=== PATIENT | female | born 1930 | race Caucasian/White ===

== ENCOUNTER → 2016-12-20 | Outpatient (CLI) | payer OTHER ==
[~2016-12-20] MED LIST: ADVIN10/60 INH; ADVIN10050 INH; ASPI81TA28 PO; ATOR-24 PO; CHOL100010 PO; CLR10 PO; COEN1CAP17 PO; FRS/40 PO; INSDGI SC; MISCCAP80 PO; NVLGI/PEN SQ; PRIM50TA34 PO; PRLSR20 PO; TRAM-10 PO; TYLER650 PO
[2016-12-20 17:38] LABS: URINE PROTIEN/CREAT RATIO 0.1 (0-0.2); URINE TOTAL PROTEIN 18.7 mg/dl (0-11.9)
[2016-12-20 17:39] LABS: ALT/SGPT 23 U/L (12-78); BLOOD UREA NITROGEN 29 mg/dl (7-18); BUN/CREATININE RATIO 26.6 (10-20); CALCIUM 8.9 mg/dl (8.5-10.1); CARBON DIOXIDE 26 mmol/L (21-32); CHLORIDE 103 mmol/L (98-107); GLUCOSE 82 mg/dl (70-99); POTASSIUM 4.2 mmol/L (3.5-5.1); SODIUM 137 mmol/L (136-145)
[2016-12-20 17:42] LABS: ALB/GLOB RATIO 1.1 (0.9-2); ALKALINE PHOSPHATASE 88 U/L (45-117); AST/SGOT 18 U/L (15-37)
[2016-12-21 06:12] LABS: ESTIMATED AVERAGE GLUCOSE 128 mg/dl; HA1C FLAG Normal (Normal)
== END | disposition home or self-care (01) ==
LOC: C.LABBC 13:01
PROVIDERS: ATTEND Internal Medicine Geriatric Medicine
DX: R32 Unspecified urinary incontinence (principal); E11.29 Type 2 diabetes mellitus with other diabetic kidney complication

== ENCOUNTER → 2017-11-06 | Outpatient (CLI) | payer OTHER ==
[2017-11-06 13:44] LABS: BASO % 0.4 %; BASO ABS # 0.02 K/uL (0-0.2); EOS % 3.4 %; EOS ABS # 0.19 K/uL (0-0.5); HEMATOCRIT 35.9 % (37-47); IG# 0.01 K/uL (0.00-0.02); LYMPH % 32.6 %; LYMPH ABS # 1.84 K/uL (1.2-3.4); MEAN CELL VOLUME 94.7 fL (80-100); MEAN CORPUSCULAR HEMOGLOBIN 31.7 pg (25-34); MEAN CORPUSCULAR HGB CONC 33.4 g/dl (32-36); MEAN PLATELET VOLUME 10.5 fL (7.4-10.4); MONO % 9.2 %; MONO ABS # 0.52 K/uL (0.11-0.59); NEUT % 54.2 %; NEUT ABS # 3.07 K/uL (1.4-6.5); PLATELET COUNT 163 K/uL (130-400); RED CELL DISTRIBUTION WIDTH CV 12.6 % (11.5-14.5); RED CELL DISTRIBUTION WIDTH SD 42.8 fL (36.4-46.3); WHITE BLOOD COUNT 5.65 K/uL (4.8-10.8)
[2017-11-06 14:21] LABS: BLOOD UREA NITROGEN 34 mg/dl (7-18); CARBON DIOXIDE 28 mmol/L (21-32); CREATININE 1.22 mg/dl (0.60-1.20); GLUCOSE 91 mg/dl (70-99); SODIUM 141 mmol/L (136-145)
[2017-11-07 06:06] LABS: HEMOGLOBIN A1C 5.7 % (4.5-5.6)
== END | disposition home or self-care (01) ==
LOC: C.LABBC 11:51
PROVIDERS: ATTEND Internal Medicine Geriatric Medicine
DX: N18.9 Chronic kidney disease, unspecified (principal); E11.29 Type 2 diabetes mellitus with other diabetic kidney complication; I12.9 Hypertensive chronic kidney disease with stage 1 through stage 4 chronic kidney disease, or unspecified chronic kidney disease; E78.5 Hyperlipidemia, unspecified

== ENCOUNTER 2022-06-10 10:46 | Observation (INO) ==
--- NOTE | 2022-06-10 11:26 | XRay Report ---
XR chest 1V portable CLINICAL HISTORY: fall, weak. Evaluate cardiopulmonary status COMPARISON STUDY: 01/10/2022 TECHNIQUE: 1 view of the chest FINDINGS: Single frontal view of the chest demonstrates the cardiomediastinal silhouette to be within normal li mits. There is again asymmetric elevation of the right hemidiaphragm with crowding the bronchovascula r markings at the right lung base. The lungs are clear of alveolar opacities. There is no evidence fo r pleural effusion. There is no evidence for vascular congestion. There is no acute osseous pathology . IMPRESSION: 1. No acute cardiopulmonary disease. ACT 112: Negative or not required by law. Electronically signed by: Uri Jay M.D. 06/10/2022 11:25 AM
[2022-06-10 11:53] LABS: Appearance Urine Clear (Clear); Bacteria Urine Automated 1+ (Negative); Bilirubin Urine Negative (Negative); Blood Urine Trace (Negative); Cast Urine Automated 0 /lpf (0-5); Color Urine Yellow; Glucose Urine UA Negative (Negative); Ketones Urine Negative (Negative); Leukocyte Esterase Urine Trace (Negative); Nitrite Urine Negative (Negative); Protein Urine Negative (Negative); RBC Urine Automated 0-4 /hpf (0-4); Specific Gravity Urine 1.014 (1.000-1.030); Urobilinogen Urine Negative (Negative)
--- NOTE | 2022-06-10 11:55 | Emergency Department Note ---
Impression & Plan Fall, Dementia with behavioral disturbance, Back pain, Ambulatory dysfunction ED Provider Note Provider: Pedro Cedeno MD DATE OF SERVICE: 06/10/2022 CHIEF COMPLAINT: Fall HISTORY OF PRESENT ILLNESS: Patient is a 89-year-old female with a history of essential tremor, dementia, diabetic neuropathy and lymphedema, as well as CAD presenting after a fall at her home. Patient was evidently in her bathroom getting up off the toilet and lost her balance and fell to the ground. She did struck her head but denies any head or neck pain at this point. Reports some pain of the upper spine to the lower spine. Denies any new numbness or tingling in the extremities. Patient states he is some chronic swelling of her lower leg but this is not significantly changed. Does have some wound to the left soler but she states this has been improving. Patient upon arrival does have some heel cups in place but they are malpositioned may be contributing to the fall. Patient herself states the neighbors come to help but she lives by herself. She states she just felt weak and does have frequent falls. Patient states that family do not help much she does not want to see her daughter as her daughter took control of her finances. Patient states that it is currently 1921 in April. She tells me her wrong birthday. Patient denies chest pain or shortness of breath. Daughter later arrives and states that her mother has been having issues with dementia and memory for some time and got caught up in a [employer] money issue and for the last several months she has been in control of the finances. She states her mother does not like this. She states her mother lives alone and has been resistant to any move into assisted living. She states that her mother is often angry with medical providers including her PCP as they told her that she has dementia. REVIEW OF SYSTEMS: A total of 10 review of systems was obtained and negative except as stated above in the HPI. PAST MEDICAL HISTORY: As noted above MEDICATIONS: Reviewed home medication list SOCIAL HISTORY: Currently resides by herself PHYSICAL EXAM: GENERAL: alert and oriented to person but not aware of the current year or her birthday in no acute distress on stretcher Head: normocephalic and atraumatic EYES: No injection, discharge or icterus. NECK: Trachea midline. Supple. ENT: Mucous membranes pink and moist. LUNGS: Airway patent. No retractions. Breath sounds clear with good air entry bilaterally. HEART: Regular rate and rhythm. No chest wall tenderness ABDOMEN: Soft and non-tender, without guarding or rebound. No hepatosplenomegaly or masses BACK: Mild diffuse midline tenderness of the entire spine without obvious contusion or step-off noticed. SKIN: Acyanotic, warm, dry, without rashes EXTREMITIES: 2-3+ lower extremity edema of the legs with an approximately 2 x 8 cm area of some wound and contusion over the left soler. NEUROLOGICAL: No focal deficits. No aphasia. No facial droop or slurred speech. Normal strength and tone in the extremities. Sensation to gross touch normal. EK bpm. No PVC or PAC. No acute ST segment elevation with some questionable anterior T wave changes some possible ST depression in V2 V3. QTc 438. CONTINUOUS CARDIAC MONITORING: was ordered and showed a heart rate of 70s-80s bpm in normal sinus rhythm Patient's laboratory studies and imaging reviewed. Differential includes Fracture, dislocation, contusion, intra-abdominal, pneumothorax, intrathoracic, intracranial, neurologic, compartment syndrome, rhabdomyolysis, as well as other pathologies. IMPRESSION/MEDICAL DECISION MAKING: Patient presents after a fall. Does not clearly describe prodromal symptoms but not the best historian. States she did strike her head but without significant focal deficits at this time. Has chronic swelling of her lower legs does not appear to be that new in discussion with her and based on prior medical record review. Reports her left soler wound is improving and does not appear severely infected at this point. History of dementia. There was some concerns with her safety living alone given her dementia and memory status at this point. Basic labs as well as CT imaging of the head cervical spine, spine was obtained to exclude traumatic injuries given the fall. Daughter does provide some additional history and will involve case management here. Today without significant leukocytosis and urinalysis not impressive for infection. Minimal anemia. Negative COVID test. No signs of rhabdomyolysis or significant liver dysfunction. Renal function and BUN just slightly worse than previous. Given a bit of IV fluid hydration. No severe electrolyte abnormalit y. Chest x-ray per radiology without significant findings. CT head per radiology without acute findings. CT of the cervical, thoracic, and lumbar spine show osteopenia and degenerative changes with some lumbar central canal stenosis radiology. They also note multiple pulmonary lesions concerning for oncological process and as such a CT of the chest will be completed as well. In discussion with patient's daughter she states this is a known finding and she has slow-growing lung cancer that they have elected not to treat. Patient does not wish to go to assisted living but discussed with her concerns about her going home at this point given her weakness. Nursing attempted to ambulate and this did not go well and she was unable to do it even with assistance. Patient was agreeable to stay at this time given her inability to ambulate and the fact she lives alone. Patient's daughter was updated. Case management was involved and will further involve area agency on aging tomorrow. DIAGNOSIS: Fall, back pain, dementia, ambulatory dysfunction DISPOSITION: Hospitalist will evaluate Patient was agreeable with this plan. 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 Venous insufficiency Surgical History H/O hysterectomy with oophorectomy History of anesthesia reaction History of appendectomy History of colonoscopy History of evacuation of hematoma History of laparotomy (~1984) History of partial mastectomy of right breast History of tonsillectomy Hx of cataract surgery Surgical history unknown Family History Father Rheumatoid arthritis Colorectal cancer Mother Diabetes Colorectal cancer Unknown Hypertension Brain cancer Heart disease Brother H/O lower limb amputation Alcoholism Son Crohn's disease Diabetes Other Has 1 child Denies family history of Ovarian cancer Prostate cancer Breast cancer Lung cancer Social History Smoking Status: Never smoker Second Hand Exposure: No; Hx Alcohol Use: No Hx Substance Use: No Preferred Language: Upper Sorbian Communication Ability: Impaired Visual Impairment: Limited Hearing Ability: Normal Denture Model Maker Required: No marital status: / Current Living Situation: Alone current occupational status: retired How many Children do You have: 3 Feels Safe at Home: Yes Safety Concerns Comment: STATED THAT HER DAUGTHER TOOK HER PISTOL NOW SHE DOES NOT FEEL SAFE Childhood Exposure to Second-Hand Smoke: No caffeine: Yes Dental Care, Regularly: Yes Physical Activity Frequency: Does not Exercise Seatbelt Use: never Sunscreen Use: Yes Assistive Devices: Cane and Glasses Allergies Allergies Allergy/AdvReac Type Severity Reaction Status Date / Time carbidopa Allergy Unknown "GO CRAZY" Verified 04/23/22 13:08 latex Allergy Unknown ITCHY/RASH Verified 04/23/22 13:08 levodopa Allergy Unknown "GO CRAZY" Verified 04/23/22 13:08 Penicillins Allergy Unknown PT NOT SURE Verified 04/23/22 13:08 amlodipine [From Caduet] AdvReac Unknown Verified 04/23/22 13:08 atorvastatin [From Lipitor] AdvReac Unknown Verified 04/23/22 13:08 doxycycline AdvReac Unknown Verified 04/23/22 13:08 lisinopril AdvReac Unknown Verified 04/23/22 13:08 losartan AdvReac Unknown Verified 04/23/22 13:08 meclizine AdvReac Unknown Verified 04/23/22 13:08 morphine AdvReac Unknown ITCHINESS Verified 04/23/22 13:08 pramipexole [From Mirapex] AdvReac Unknown Verified 04/23/22 13:08 topiramate [From Topamax] AdvReac Unknown Verified 04/23/22 13:08 Home Meds Home Medications Medication Instructions Recorded Confirmed cholecalciferol (vitamin D3) 125 5,000 units PO QAM 06/02/20 04/23/22 mcg (5,000 unit) tablet (Vitamin D3) loratadine 10 mg tablet 10 mg PO QAM PRN Allergy Symptoms 08/04/20 04/23/22 ascorbic acid (vitamin C) 500 mg 500 mg PO DAILY 01/18/21 04/23/22 tablet cod liver oil 2 cap PO DAILY PRN 04/23/22 04/23/22 diphenhydramine 25 4 tab PO HS 04/23/22 04/23/22 mg-acetaminophen 500 mg tablet (Tylenol PM Extra Strength) primidone 50 mg tablet See Rx Instructions .Route .COMPLEX 04/23/22 turmeric 400 mg capsule 800 mg PO DAILY PRN 04/23/22 04/23/22 Previous Rx's Medication Instructions Recorded blood sugar diagnostic (OneTouch #100 ea 08/16/21 Verio test strips) blood-glucose meter (OneTouch #1 ea 08/16/21 Verio Meter) lancets 30 gauge (OneTouch Delica #200 ea 08/16/21 Lancets) fluticasone propionate 50 1 spray intranasal BID PRN nasal 09/20/21 mcg/actuation nasal congestion #16 grams spray,suspension (Flonase Allergy Relief) pen needle, diabetic 32 gauge x #100 ea 12/26/21 532" (BD Ultra-Fine Samia Pen Needle) propranolol 60 mg capsule,24 60 mg PO QAM tremors #90 caps 01/08/22 hr,extended release diphenoxylate-atropine 2.5 1 tab PO BID PRN diarrhea #30 tabs 02/20/22 mg-0.025 mg tablet (Lomotil) insulin detemir U-100 100 unit/mL 10 unit (0.1 mL) subcut HS #3 mL 04/23/22 (3 mL) subcutaneous pen (Levemir FlexTouch U-100 Insulin) furosemide 40 mg tablet 80 mg PO QAM #180 tabs 05/01/22 Results & Data (ED) Vital Signs Vital Signs - 24 hr 06/10/22 10:52 06/10/22 11:33 06/10/22 12:01 Temperature 37.0 C Temperature Source Oral Pulse Rate 78 82 Pulse Rate [Apical] Pulse Rate from SpO2 Sensor 80 Pulse Rhythm Regular Pulse Rhythm [Apical] Pulse Strength Normal Respiratory Rate 19 13 Respiratory Effort / Characteristics Non-Labored Respiratory Depth Normal Respiratory Pattern Regular Blood Pressure 119/65 117/48 L Blood Pressure [Right Arm] Blood Pressure Mean 83 71 Blood Pressure Mean [Right Arm] Blood Pressure Position Lying Blood Pressure Position [Right Arm] Pulse Oximetry 98 98 98 Oxygen Delivery Method Room Air Room Air Room Air Sepsis Recent Fever Within 48 Hours No Sepsis New/Unexplained Change in Mental Status No Sepsis Action Taken by Nursing No Action Required 06/10/22 13:06 Temperature Temperature Source Pulse Rate Pulse Rate [Apical] 71 Pulse Rate from SpO2 Sensor Pulse Rhythm Pulse Rhythm [Apical] Regular Pulse Strength Respiratory Rate 16 Respiratory Effort / Characteristics Non-Labored Spontaneous Respiratory Depth Normal Respiratory Pattern Regular Blood Pressure Blood Pressure [Right Arm] 146/60 H Blood Pressure Mean Blood Pressure Mean [Right Arm] 88 Blood Pressure Position Blood Pressure Position [Right Arm] Lying Pulse Oximetry 97 Oxygen Delivery Method Room Air Sepsis Recent Fever Within 48 Hours Sepsis New/Unexplained Change in Mental Status Sepsis Action Taken by Nursing Laboratory Data Result diagrams: 06/10/22 11:48 06/10/22 11:48 Lab Results 06/10/22 06/10/22 06/10/22 Range/Units 11:30 11:30 11:48 WBC 10.67 (4.8-10.8) K/ul RBC 3.69 L (3.93-5.22) M/uL Hgb 11.6 L (12.0-16.0) g/dl Hct 35.0 (34.1-44.9) % MCV 94.9 (80.0-100.0) fL MCH 31.4 (25.0-34.0) pg MCHC 33.1 (32.0-36.0) g/dL RDW Std Deviation 43.5 (36.4-46.3) fL RDW Coeff of Deirdre 12.5 (11.5-14.5) % Plt Count 165 (130-400) K/uL MPV 10.9 (9.4-12.3) fL Immature Gran % (Auto) 0.7 % Neut % (Auto) 84.6 % Lymph % (Auto) 7.4 % Sharp % (Auto) 7.0 % Eos % (Auto) 0.1 % Baso % (Auto) 0.2 % Neut # (Auto) 9.02 H (1.4-6.5) K/uL Lymph # (Auto) 0.79 L (1.2-3.4) K/uL Sharp # (Auto) 0.75 (0.24-0.82) K/uL Eos # (Auto) 0.01 (0-0.50) K/uL Baso # (Auto) 0.02 (0-0.2) K/uL Immature Gran # (Auto) 0.08 H (0.00-0.02) K/uL Sodium (136-145) mmol/L Potassium (3.5-5.1) mmol/L Chloride (98-107) mmol/L Carbon Dioxide (21-32) mmol/L Anion Gap (3-11) BUN (6-23) mg/dl Creatinine (0.6-1.2) mg/dl Est Cr Clr Drug Dosing ml/min Est GFR ( Amer) ml/min Est GFR (Non-Af Amer) ml/min BUN/Creatinine Ratio (10-20) Glucose (70-99(Fasting)) mg/dl Calcium (8.5-10.1) mg/dl Total Bilirubin (0.2-1.0) mg/dl AST (13-39) U/L ALT (7-52) U/L Alkaline Phosphatase (34-104) U/L Total Creatine Kinase (26-192) U/L Troponin I High Sens (0-14) pg/ml Total Protein (6.0-8.3) gm/dl Albumin (3.4-5.0) gm/dl Globulin (2.5-4.0) gm/dl Albumin/Globulin Ratio (0.9-2) TSH (0.300-4.500) uIu/ml Urine Color Yellow Urine Appearance Clear (Clear) Urine pH 5.0 (4.5-7.5) Ur Specific [place] 1.014 (1.000-1.030) Urine Protein Negative (Negative) Urine Glucose (UA) Negative (Negative) Urine Ketones Negative (Negative) Urine Blood Trace H (Negative) Urine Nitrite Negative (Negative) Urine Bilirubin Negative (Negative) Urine Urobilinogen Negative (Negative) Ur Leukocyte Esterase Trace H (Negative) Urine WBC (Auto) 1-5 (0-5) /hpf Urine RBC (Auto) 0-4 (0-4) /hpf U Hyaline Cast (Auto) 0 (0-5) /lpf U Epithel Cells (Auto) 10-20 H (0-5) /lpf Urine Bacteria (Auto) 1+ H (Negative) SARS-CoV-2, RNA, NAAT NEGATIVE (NEGATIVE) 06/10/22 06/10/22 Range/Units 11:48 11:48 WBC (4.8-10.8) K/ul RBC (3.93-5.22) M/uL Hgb (12.0-16.0) g/dl Hct (34.1-44.9) % MCV (80.0-100.0) fL MCH (25.0-34.0) pg MCHC (32.0-36.0) g/dL RDW Std Deviation (36.4-46.3) fL RDW Coeff of Deirdre (11.5-14.5) % Plt Count (130-400) K/uL MPV (9.4-12.3) fL Immature Gran % (Auto) % Neut % (Auto) % Lymph % (Auto) % Sharp % (Auto) % Eos % (Auto) % Baso % (Auto) % Neut # (Auto) (1.4-6.5) K/uL Lymph # (Auto) (1.2-3.4) K/uL Sharp # (Auto) (0.24-0.82) K/uL Eos # (Auto) (0-0.50) K/uL Baso # (Auto) (0-0.2) K/uL Immature Gran # (Auto) (0.00-0.02) K/uL Sodium 136 (136-145) mmol/L Potassium 3.9 (3.5-5.1) mmol/L Chloride 100 (98-107) mmol/L Carbon Dioxide 25 (21-32) mmol/L Anion Gap 11 (3-11) BUN 58 H (6-23) mg/dl Creatinine 1.49 H (0.6-1.2) mg/dl Est Cr Clr Drug Dosing 24.6 ml/min Est GFR ( Amer) 35.7 ml/min Est GFR (Non-Af Amer) 30.8 ml/min BUN/Creatinine Ratio 38.9 H (10-20) Glucose 178 H (70-99(Fasting)) mg/dl Calcium 9.4 (8.5-10.1) mg/dl Total Bilirubin 0.4 (0.2-1.0) mg/dl AST 27 (13-39) U/L ALT 30 (7-52) U/L Alkaline Phosphatase 120 H (34-104) U/L Total Creatine Kinase 146 (26-192) U/L Troponin I High Sens 12.4 (0-14) pg/ml Total Protein 7.8 (6.0-8.3) gm/dl Albumin 4.0 (3.4-5.0) gm/dl Globulin 3.8 (2.5-4.0) gm/dl Albumin/Globulin Ratio 1.1 (0.9-2) TSH 1.484 (0.300-4.500) uIu/ml Urine Color Urine Appearance (Clear) Urine pH (4.5-7.5) Ur Specific [place] (1.000-1.030) Urine Protein (Negative) Urine Glucose (UA) (Negative) Urine Ketones (Negative) Urine Blood (Negative) Urine Nitrite (Negative) Urine Bilirubin (Negative) Urine Urobilinogen (Negative) Ur Leukocyte Esterase (Negative) Urine WBC (Auto) (0-5) /hpf Urine RBC (Auto) (0-4) /hpf U Hyaline Cast (Auto) (0-5) /lpf U Epithel Cells (Auto) (0-5) /lpf Urine Bacteria (Auto) (Negative) SARS-CoV-2, RNA, NAAT (NEGATIVE) Administered Medications Discontinued Medications Sodium Chloride (Nss) 500 mls @ 999 mls/hr IV .Q31M ONE Stop: 06/10/22 13:13 Last Admin: 06/10/22 12:44 Dose: 999 mls/hr Documented By: PR Imaging Data Radiologist's Impression: Cervical Spine CT 06/10/22 11:05 CT cervical spine wo con CLINICAL HISTORY: fall with neck pain COMPARISON STUDY: No previous studies for comparison. CT DOSE: 2314.94 mGy.cm TECHNIQUE: Standard CT of the Cervical Spine was performed without IV contrast. A dose lowering technique was utilized adhering to the principles of ALARA. FINDINGS: Bones: The bones are osteopenic. There is reversal of expected cervical lordosis most likely related to the degenerative changes present. There is no evidence for an acute fracture or malalignment. The heights of the vertebral bodies are maintained. The vertebral bodies are in anatomic alignment. The odontoid is intact and the atlantoaxial articulation is within normal limits. Disc spaces: There is marked disc space narrowing from C4 through C7 with minimal endplate sclerosis and osteophyte formation. Apophyseal joints: Degenerative apophyseal joint disease is also seen bilaterally. Soft tissues: The prevertebral soft tissues are within normal limits. IMPRESSION: 1. Osteopenia with no acute osseous pathology. 2. 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 ACT 112: Negative or not required by law. Electronically signed by: Uri Jay M.D. 06/10/2022 1:[address] 06/10/22 11:05 CT head/brain wo con CLINICAL HISTORY: weak, fall with trauma to the head COMPARISON STUDY: 01/10/2022 CT DOSE: TECHNIQUE: Standard CT of the Brain was performed without IV contrast. A dose lowering technique was utilized adhering to the principles of ALARA. FINDINGS: Extraaxial space: There is no evidence for subdural hematoma. There are no extra-axial fluid collections. Ventricles and cisterns: The ventricles are again mildly dilated bilaterally. There is no evidence for midline shift or mass effect. Parenchyma: There is no subarachnoid or intraparenchymal hemorrhage. There is no evidence for an acute infarct or cerebral edema. There is mild cerebral cortical atrophy and decreased attenuation in the periventricular white matter representing remote small vessel disease. There are no gross mass lesions. Osseous structures: There is no evidence for an acute fracture. The visualized paranasal sinuses are clear. The mastoid air cells are clear bilaterally. Soft tissues: There is no evidence for focal soft tissue swelling. IMPRESSION: 1. No acute intracerebral pathology. 2. 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 ACT 112: Negative or not required by law. Electronically signed by: Uri Jay M.D. 06/10/2022 1:[address] 06/10/22 11:05 CT lumbar spine wo con CLINICAL HISTORY: Fall with lower back pain COMPARISON STUDY: No previous studies for comparison. CT DOSE: TECHNIQUE: Standard CT of the Lumbar Spine was performed without IV contrast. A dose lowering technique was utilized adhering to the principles of ALARA. FINDINGS: Bones: The bones are osteopenic. There is degenerative grade 1/4 spondylolisthesis of L3 on L4 and L4 on L5. There is no evidence for an acute fracture or malalignment. The heights of the vertebral bodies are maintained. The vertebral bodies are in anatomic alignment. Disc spaces: There is moderate to marked disc space narrowing present at L3-4, L4-5 and L5-S1 with vacuum disc phenomena present. Bulging annuli and thickening of the ligamentum flavum are also present at each of these levels. There is associated moderate central canal stenosis at L3-4, moderate to marked central canal stenosis at L4-5 and mild central canal stenosis at L5-S1. Facet joints: Hypertrophic facet joint disease is seen particularly at the lower 3 disc space levels. The sacroiliac joints are intact bilaterally. Soft tissues: The prevertebral soft tissues are within normal limits. IMPRESSION: 1. Osteopenia with no acute osseous pathology. 2. 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 3. There is associated central canal stenosis at the lower 3 disc space levels.. ACT 112: Negative or not required by law. Electronically signed by: Uri Jay M.D. 06/10/2022 1:[address] 06/10/22 11:05 CT thoracic spine wo con CLINICAL HISTORY: fall, pain upper back COMPARISON STUDY: No previous studies for comparison. CT DOSE: TECHNIQUE: Standard CT of the Thoracic Spine was performed without IV contrast. A dose lowering technique was utilized adhering to the principles of ALARA. FINDINGS: Bones: The bones are osteopenic. There is no evidence for an acute fracture or malalignment. The heights of the vertebral bodies are maintained. The vertebral bodies are in anatomic alignment. Disc spaces: There is moderate disc space narrowing seen throughout the thoracic spine with endplate sclerosis and osteophyte formation. Pedicles::The pedicles are intact bilaterally. Soft tissues: The paraspinal soft tissues are within normal limits. IMPRESSION: 1. Osteopenia with no acute osseous pathology. 2. Moderate disc space narrowing ACT 112: Negative or not required by law. Electronically signed by: Uri Jay M.D. 06/10/2022 1:18 PM Chest X-Ray 06/10/22 11:06 XR chest 1V portable CLINICAL HISTORY: fall, weak. Evaluate cardiopulmonary status COMPARISON STUDY: 01/10/2022 TECHNIQUE: 1 view of the chest FINDINGS: Single frontal view of the chest demonstrates the cardiomediastinal silhouette to be within normal limits. There is again asymmetric elevation of the right hemidiaphragm with crowding the bronchovascular markings at the right lung base. The lungs are clear of alveolar opacities. There is no evidence for pleural effusion. There is no evidence for vascular congestion. There is no acute osseous pathology. IMPRESSION: 1. No acute cardiopulmonary disease. ACT 112: Negative or not required by law. Electronically signed by: Uri Jay M.D. 06/10/2022 11:[address] 06/10/22 13:56 CT chest diagnostic wo con CLINICAL HISTORY: Status post fall with back pain. History of previous lung cancer with suspicion of lung lesions. COMPARISON STUDY: CT of the chest from 04/27/2019 CT DOSE: TECHNIQUE: Standard CT of the Chest was performed without IV contrast. A dose lowering technique was utilized adhering to the principles of ALARA. FINDINGS: Airway: The airway is clear. No endobronchial lesion is identified. Lungs: Compared to the previous CT, there is again a spiculated masslike consolidation with solid and groundglass attenuation in the right suprahilar upper lobe measuring approximately 3.3 x 2.3 cm when compared to 2.8 x 2.3 cm on the previous study. A large irregular and spiculated multilobular masslike consolidation is again seen at the right lung base measuring approximately 8.1 x 5.8 cm when compared to 6.4 x 5.2 cm in the previous study. Additionally, a new pulmonary nodule is seen at the left lung base measuring 1.6 cm in greatest diameter. This is characteristic of new metastatic lung disease. No other pulmonary nodules are identified. Pleura: There is no evidence for pleural effusion. There is no evidence for pneumothorax. Mediastinum: There is no evidence for pathologic adenopathy on these limited noncontrast images. The heart size is enlarged. Coronary artery calcification is present. The thoracic aorta is within normal limits. There is no evidence for pericardial effusion. Upper abdomen: The adrenal glands are normal bilaterally. There is a small to moderate size hiatal hernia. Osseous structures: There is no acute osseous pathology. IMPRESSION: 1. Interval increase in previously identified right lower lobe lung mass. 2. No significant change in right upper lobe lung mass. 3. New left lower lobe pulmonary nodule characteristic of metastatic disease. 4. No other evidence for acute chest disease. ACT 112: Negative or not required by law. Electronically signed by: Uri Jay M.D. 06/10/2022 2:36 PM Discharge Plan Visit Data Chief Complaint: Fall ED Provider: Pedro Cedeno Discharge Problem: Fall, Dementia with behavioral disturbance, Back pain, Ambulatory dysfunction Patient Disposition: Being Evaluated by Hospitalist Forms Stand Alone Forms: [facility] [place] Prescriptions Prescriptions: No Action (DME) pen needle, diabetic [BD Ultra-Fine Samia Pen Needle] 32 gauge x 5/32" needle See Rx Instructions .ROUTE .MEDSUPPLY Qty: 100 1RF Rx Instructions: use once a day furosemide 40 mg tablet 80 mg PO QAM Qty: 180 1RF (DME) OneTouch Verio test strips Strip See Rx Instructions .Route Qty: 100 3RF Rx Instructions: As directed (DME) blood-glucose meter [OneTouch Verio Meter] Misc See Rx Instructions .Route Qty: 1 0RF Rx Instructions: As directed (DME) lancets [OneTouch Delica Lancets] 30 gauge misc See Rx Instructions .Route Qty: 200 3RF Rx Instructions: As directed propranolol 60 mg capsule,extended release 24 hr 60 mg PO QAM Qty: 90 1RF primidone 50 mg tablet See Rx Instructions .ROUTE .COMPLEX Rx Instructions: TAKE 2 TABLETS (100 MG) EVERY MORNING AND 3 TABLETS (150 MG) AT BEDTIME per pt takes 4 at bedtime as of 04/23/2022 Levemir FlexTouch U-100 Insuln 100 unit/mL (3 mL) insulin pen 10 unit SQ HS Qty: 3 0RF fluticasone propionate [Flonase Allergy Relief] 50 mcg/actuation spray,suspension 1 spray intranasal BID PRN (Reason: nasal congestion) Qty: 16 2RF Rx Instructions: administer into each nostril diphenoxylate-atropine [Lomotil] 2.5-0.025 mg tablet 1 tab PO BID PRN (Reason: diarrhea) Qty: 30 0RF Rx Instructions: please mail to pt cod liver oil Capsule 2 cap PO DAILY PRN turmeric 400 mg capsule 800 mg PO DAILY PRN ascorbic acid (vitamin C) 500 mg tablet 500 mg PO DAILY cholecalciferol (vitamin D3) [Vitamin D3] 125 mcg (5,000 unit) tablet 5,000 units PO QAM loratadine 10 mg tablet 10 mg PO QAM PRN (Reason: Allergy Symptoms) diphenhydramine-acetaminophen [Tylenol PM Extra Strength] 25-500 mg tablet 4 tab PO HS Referrals Referrals: Will Qureshi DO [Primary Care Provider] - : Fall Qualifiers: Encounter type: initial encounter Qualified Code(s): W19.XXXA - Unspecified fall, initial encounter Dementia with behavioral disturbance Qualifiers: Dementia type: unspecified type Qualified Code(s): F03.91 - Unspecified dementia with behavioral disturbance Back pain Qualifiers: Back pain location: back pain in unspecified location Chronicity: acute Back pain laterality: midline Qualified Code(s): M54.9 - Dorsalgia, unspecified
[2022-06-10 12:16] LABS: Basophils # (auto) 0.02 K/uL (0-0.2); Basophils % (auto) 0.2 %; Eosinophils # (auto) 0.01 K/uL (0-0.50); Eosinophils % (auto) 0.1 %; Hemoglobin 11.6 g/dl (12.0-16.0); Immature Granulocytes # (auto) 0.08 K/uL (0.00-0.02); Immature Granulocytes % (auto) 0.7 %; Lymphocytes # (auto) 0.79 K/uL (1.2-3.4); Lymphocytes % (auto) 7.4 %; Mean Corpuscular Hemoglobin 31.4 pg (25.0-34.0); Mean Corpuscular Hgb Conc 33.1 g/dL (32.0-36.0); Mean Corpuscular Volume 94.9 fL (80.0-100.0); Mean Platelet Volume 10.9 fL (9.4-12.3); Monocytes # (auto) 0.75 K/uL (0.24-0.82); Neutrophils # (auto) 9.02 K/uL (1.4-6.5); Neutrophils % (auto) 84.6 %; Platelet Count 165 K/uL (130-400); RDW Coefficient of Variation 12.5 % (11.5-14.5); RDW Standard Deviation 43.5 fL (36.4-46.3); Red Blood Count 3.69 M/uL (3.93-5.22); White Blood Count 10.67 K/ul (4.8-10.8)
[2022-06-10 12:37] LABS: Albumin Globulin Ratio 1.1 (0.9-2); BUN Creatinine Ratio 38.9 (10-20); Bilirubin,Total 0.4 mg/dl (0.2-1.0); Calcium 9.4 mg/dl (8.5-10.1); Creatinine Clr Calc Pharmacy 24.6 ml/min; Est GFR (African American) 35.7 ml/min; Est GFR (Non-African American) 30.8 ml/min; Globulin 3.8 gm/dl (2.5-4.0); Potassium 3.9 mmol/L (3.5-5.1); Total Protein 7.8 gm/dl (6.0-8.3)
[2022-06-10 12:42] LABS: Troponin I High Sensitivity 12.4 pg/ml (0-14)
[2022-06-10] MEDS ORDERED: SODIUM CHLORIDE 0.9% 500 ML IV ONE (12:43)
--- NOTE | 2022-06-10 13:14 | CT Scan Report ---
CT head/brain wo con CLINICAL HISTORY: weak, fall with trauma to the head COMPARISON STUDY: 01/10/2022 CT DOSE: TECHNIQUE: Standard CT of the Brain was performed without IV contrast. A dose lowering technique was utilized adhering to the principles of ALARA. FINDINGS: Extraaxial space: There is no evidence for subdural hematoma. There are no extra-axial fluid collecti ons. Ventricles and cisterns: The ventricles are again mildly dilated bilaterally. There is no evidence fo r midline shift or mass effect. Parenchyma: There is no subarachnoid or intraparenchymal hemorrhage. There is no evidence for an acut e infarct or cerebral edema. There is mild cerebral cortical atrophy and decreased attenuation in the periventricular white matter representing remote small vessel disease. There are no gross mass lesio ns. Osseous structures: There is no evidence for an acute fracture. The visualized paranasal sinuses are clear. The mastoid air cells are clear bilaterally. Soft tissues: There is no evidence for focal soft tissue swelling. IMPRESSION: 1. No acute intracerebral pathology. 2. 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 ACT 112: Negative or not required by law. Electronically signed by: Uri Jay M.D. 06/10/2022 1:12 PM
--- NOTE | 2022-06-10 13:18 | CT Scan Report ---
CT cervical spine wo con CLINICAL HISTORY: fall with neck pain COMPARISON STUDY: No previous studies for comparison. CT DOSE: 2314.94 mGy.cm TECHNIQUE: Standard CT of the Cervical Spine was performed without IV contrast. A dose lowering oral hnique was utilized adhering to the principles of ALARA. FINDINGS: Bones: The bones are osteopenic. There is reversal of expected cervical lordosis most likely related to the degenerative changes present. There is no evidence for an acute fracture or malalignment. The heights of the vertebral bodies are maintained. The vertebral bodies are in anatomic alignment. The o dontoid is intact and the atlantoaxial articulation is within normal limits. Disc spaces: There is marked disc space narrowing from C4 through C7 with minimal endplate sclerosis and osteophyte formation. Apophyseal joints: Degenerative apophyseal joint disease is also seen bilaterally. Soft tissues: The prevertebral soft tissues are within normal limits. IMPRESSION: 1. Osteopenia with no acute osseous pathology. 2. 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 ACT 112: Negative or not required by law. Electronically signed by: Uri Jay M.D. 06/10/2022 1:16 PM
--- NOTE | 2022-06-10 13:19 | CT Scan Report ---
CT thoracic spine wo con CLINICAL HISTORY: fall, pain upper back COMPARISON STUDY: No previous studies for comparison. CT DOSE: TECHNIQUE: Standard CT of the Thoracic Spine was performed without IV contrast. A dose lowering tech nique was utilized adhering to the principles of ALARA. FINDINGS: Bones: The bones are osteopenic. There is no evidence for an acute fracture or malalignment. The heig hts of the vertebral bodies are maintained. The vertebral bodies are in anatomic alignment. Disc spaces: There is moderate disc space narrowing seen throughout the thoracic spine with endplate sclerosis and osteophyte formation. Pedicles::The pedicles are intact bilaterally. Soft tissues: The paraspinal soft tissues are within normal limits. IMPRESSION: 1. Osteopenia with no acute osseous pathology. 2. Moderate disc space narrowing ACT 112: Negative or not required by law. Electronically signed by: Uri Jay M.D. 06/10/2022 1:18 PM
--- NOTE | 2022-06-10 13:25 | CT Scan Report ---
CT lumbar spine wo con CLINICAL HISTORY: Fall with lower back pain COMPARISON STUDY: No previous studies for comparison. CT DOSE: TECHNIQUE: Standard CT of the Lumbar Spine was performed without IV contrast. A dose lowering techni que was utilized adhering to the principles of ALARA. FINDINGS: Bones: The bones are osteopenic. There is degenerative grade 1/4 spondylolisthesis of L3 on L4 and L4 on L5. There is no evidence for an acute fracture or malalignment. The heights of the vertebral bodi es are maintained. The vertebral bodies are in anatomic alignment. Disc spaces: There is moderate to marked disc space narrowing present at L3-4, L4-5 and L5-S1 with va cuum disc phenomena present. Bulging annuli and thickening of the ligamentum flavum are also present at each of these levels. There is associated moderate central canal stenosis at L3-4, moderate to mar ked central canal stenosis at L4-5 and mild central canal stenosis at L5-S1. Facet joints: Hypertrophic facet joint disease is seen particularly at the lower 3 disc space levels. The sacroiliac joints are intact bilaterally. Soft tissues: The prevertebral soft tissues are within normal limits. IMPRESSION: 1. Osteopenia with no acute osseous pathology. 2. 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 3. There is associated central canal stenosis at the lower 3 disc space levels.. ACT 112: Negative or not required by law. Electronically signed by: Uri Jay M.D. 06/10/2022 1:22 PM
--- NOTE | 2022-06-10 13:48 | Electrocardiogram Report ---
Test Reason : Blood Pressure : / mmHG Vent. Rate : 080 BPM Atrial Rate : 080 BPM P-R Int : 158 ms QRS Dur : 076 ms QT Int : 380 ms P-R-T Axes : 057 035 047 degrees QTc Int : 438 ms Poor data quality, interpretation may be adversely affected Normal sinus rhythm Low voltage QRS Cannot rule out Inferior infarct (cited on or before 10-JAN-2022) Abnormal ECG When compared with ECG of 10-JAN-2022 19:46, ST now depressed in Anterior leads Nonspecific T wave abnormality now evident in Anterior leads Confirmed by Vikas Rojas ([id number]) on 06/10/2022 1:48:25 PM Referred By: Confirmed By:Vikas Rojas
--- NOTE | 2022-06-10 14:38 | CT Scan Report ---
CT chest diagnostic wo con CLINICAL HISTORY: Status post fall with back pain. History of previous lung cancer with suspicion of lung lesions. COMPARISON STUDY: CT of the chest from 04/27/2019 CT DOSE: TECHNIQUE: Standard CT of the Chest was performed without IV contrast. A dose lowering technique was utilized adhering to the principles of ALARA. FINDINGS: Airway: The airway is clear. No endobronchial lesion is identified. Lungs: Compared to the previous CT, there is again a spiculated masslike consolidation with solid and groundglass attenuation in the right suprahilar upper lobe measuring approximately 3.3 x 2.3 cm when compared to 2.8 x 2.3 cm on the previous study. A large irregular and spiculated multilobular masslike consolidation is again seen at the right lung base measuring approximately 8.1 x 5.8 cm when compared to 6.4 x 5.2 cm in the previous study. Additionally, a new pulmonary nodule is seen at the left lung base measuring 1.6 cm in greatest diame ter. This is characteristic of new metastatic lung disease. No other pulmonary nodules are identified . Pleura: There is no evidence for pleural effusion. There is no evidence for pneumothorax. Mediastinum: There is no evidence for pathologic adenopathy on these limited noncontrast images. The heart size is enlarged. Coronary artery calcification is present. The thoracic aorta is within normal limits. There is no evidence for pericardial effusion. Upper abdomen: The adrenal glands are normal bilaterally. There is a small to moderate size hiatal he rnia. Osseous structures: There is no acute osseous pathology. IMPRESSION: 1. Interval increase in previously identified right lower lobe lung mass. 2. No significant change in right upper lobe lung mass. 3. New left lower lobe pulmonary nodule characteristic of metastatic disease. 4. No other evidence for acute chest disease. ACT 112: Negative or not required by law. Electronically signed by: Uri Jay M.D. 06/10/2022 2:36 PM
--- NOTE | 2022-06-10 16:02 | History & Physical Report ---
Date of Service June 10, 2022 Assessment & Plan (1) Fall: Plan: patient had a fall at her home this am. details are sparse, and I was unable to reach any family to gain more information. she had extensive imaging in the ER and fortunately no bony injury or other pat hology found. she did have considerable left hip/pelvic pain during my exam - I obtained STAT x-rays of the pelvis/left hip - negative for fractures. if pain persists consider pelvic CT. place on telemetry - r/o dysrhythmia as cause of fall (I cannot rule out syncope as cause of fall). serial troponins - r/o ACS as cause of fall. will need PT/OT to assess her safety/ambulation. (2) Left hip pain: Plan: STAT x-rays without hip fracture or obvious pelvic fracture. if pain persists - pelvic CT. tylenol prn pain. (3) Acute kidney injury: Plan: creatinine is above baseline (Cr tonight 1.49, baseline about 1). patient appears mildly volume contracted. isotonic fluids overnight, repeat BMP am. (4) UTI (urinary tract infection): Plan: u/a possibly suggestive of UTI. start rocephin 2gm daily. follow culture. (5) Acute metabolic encephalopathy: Plan: patient was very confused during my visit. the ER attending was able to obtain much more information during his assessment. thus, she is even more confused than when she first arrived. will need to get a sense of her baseline from family. treat possible UTI. consider MRI brain if altered MS persists. avoid sedatives. (6) Venous ulcer of left leg: Plan: x 2. wound care consult. in meantime - [employer]el [employer] with optifoam. she has lymphedema at baseline - would benefit from compression. (7) Abnormal EKG: Plan: she has anterior ST changes and, per the record, a prior h/o CAD. initial troponin is negative. will obtain serial troponins tonight and go from there. EKG in am. low threshold for echo. 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: Plan: RUL, RLL new nodule left base on CT chest as well previously seen by thoracic surgery - patient opted for no treatment CT head without obvious mets but if altered MS persists consider MRI brain (12) Hypertension: Plan: patient is on inderal at home - likely more so for her severe tremors continue inderal at home dosing (13) Hyperlipidemia: Plan: is not on medications for such at this time despite previous CAD history (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, controlled: Plan: HbA1C 6.2% in November 2021 repeat a1c in am cont levemir loose novolog SSI achs BSGs DM diet (15) Hypomagnesemia: Plan: history of such mag level 2.2 today (16) Essential tremor: Plan: severe previously followed [place] [facility] [place] neurology felt she did NOT have PD based on records cont primidone cont inderal (17) CAD (coronary artery disease): Plan: h/o acute UT per records she is not on aspirin or statin based on her home med list is on a beta hailey but likely being used for her essential tremor initial HS troponin negative will recheck another troponin and place on telemetry (18) DVT prophylaxis: Plan: place on heparin 5000 TID History of Present Illness Chief Complaint: fall Primary Care Provider: Will Qureshi, 89yo female with a history of dementia, essential tremor, CAD, lymphedema of b/l legs, and T2DM who presented to [facility] after having had a fall at her home. The patient was very confused during the visit, stating it was 1981 and telling me that she lives with her (she lives alone by report). Due to her confusion I was unable to obtain any meaningful history or ROS. Further, I was unable to contact the patient's daughter for additional information via phone. Thus, all information was obtained from reading the patient's chart and speaking with the ER attending. By report the patient was at home in her bathroom and attempting to get up from the toilet. She lost her balance and fell to the ground. ?struck her head. It is unknown if she had any loss of consciousness. Additionally, the ER attending spoke with the patient's daughter earlier today and did confirm her mother has dementia. Due to the dementia and other factors the patient's daughter has taken control of the patient's finances. Her daughter has encouraged her to move to an assisted living facility but the patient has resisted such. Allergies Allergy/AdvReac Type Severity Reaction Status Date / Time carbidopa Allergy Unknown "GO CRAZY" Verified 04/23/22 13:08 latex Allergy Unknown ITCHY/RASH Verified 04/23/22 13:08 levodopa Allergy Unknown "GO CRAZY" Verified 04/23/22 13:08 Penicillins Allergy Unknown PT NOT SURE Verified 04/23/22 13:08 amlodipine [From Caduet] AdvReac Unknown Verified 04/23/22 13:08 atorvastatin [From Lipitor] AdvReac Unknown Verified 04/23/22 13:08 doxycycline AdvReac Unknown Verified 04/23/22 13:08 lisinopril AdvReac Unknown Verified 04/23/22 13:08 losartan AdvReac Unknown Verified 04/23/22 13:08 meclizine AdvReac Unknown Verified 04/23/22 13:08 morphine AdvReac Unknown ITCHINESS Verified 04/23/22 13:08 pramipexole [From Mirapex] AdvReac Unknown Verified 04/23/22 13:08 topiramate [From Topamax] AdvReac Unknown Verified 04/23/22 13:08 Home Medications Medication Instructions Recorded Confirmed Type cholecalciferol (vitamin D3) 125 5,000 units PO QAM 06/02/20 04/23/22 History mcg (5,000 unit) tablet (Vitamin D3) loratadine 10 mg tablet 10 mg PO QAM PRN Allergy Symptoms 08/04/20 04/23/22 History ascorbic acid (vitamin C) 500 mg 500 mg PO DAILY 01/18/21 04/23/22 History tablet blood sugar diagnostic ([email or web address] #100 ea 08/16/21 04/23/22 Rx Verio test strips) blood-glucose meter ([email or web address] #1 ea 08/16/21 04/23/22 Rx Verio Meter) lancets 30 gauge (OneTouch Delica #200 ea 08/16/21 04/23/22 Rx Lancets) fluticasone propionate 50 1 spray intranasal BID PRN nasal 09/20/21 04/23/22 Rx mcg/actuation nasal congestion #16 grams spray,suspension (Flonase Allergy Relief) pen needle, diabetic 32 gauge x #100 ea 12/26/21 04/23/22 Rx 5/32" (BD Ultra-Fine Samia Pen Needle) propranolol 60 mg capsule,24 60 mg PO QAM tremors #90 caps 01/08/22 04/23/22 Rx hr,extended release diphenoxylate-atropine 2.5 1 tab PO BID PRN diarrhea #30 tabs 02/20/22 04/23/22 Rx mg-0.025 mg tablet (Lomotil) cod liver oil 2 cap PO DAILY PRN 04/23/22 04/23/22 History diphenhydramine 25 4 tab PO HS 04/23/22 04/23/22 History mg-acetaminophen 500 mg tablet (Tylenol PM Extra Strength) insulin detemir U-100 100 unit/mL 10 unit (0.1 mL) subcut HS #3 mL 04/23/22 04/23/22 Rx (3 mL) subcutaneous pen (Levemir FlexTouch U-100 Insulin) primidone 50 mg tablet See Rx Instructions .Route .COMPLEX 04/23/22 History turmeric 400 mg capsule 800 mg PO DAILY PRN 04/23/22 04/23/22 History furosemide 40 mg tablet 80 mg PO QAM #180 tabs 05/01/22 Rx Past Med/Surg History Medical History (Updated 06/11/22 @ 06:44 by Freedrick Holt) Asthma CKD (chronic kidney disease) Dementia Diabetes mellitus with renal manifestations, controlled Diabetic peripheral neuropathy Essential tremor followed [place] [facility] [place] Gait disturbance GERD (gastroesophageal reflux disease) Hearing loss Hiatal hernia History of breast cancer RIGHT BREAST (>20 YEARS AGO) History of myocardial infarction History of skin cancer Hyperlipidemia Hypertension Lymphedema MEGAN (obstructive sleep apnea) NO CPAP Osteoarthritis Osteoporosis 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 Ongoing Observation with Ct, no tx desired by Pt. Right knee DJD Venous insufficiency Surgical History H/O hysterectomy with oophorectomy History of anesthesia reaction PT REPORTS SLOW TO WAKE UP - Takes a few hours History of appendectomy History of colonoscopy History of evacuation of hematoma LEG History of laparotomy (~1984) DUE TO ABDOMINAL ADHESIONS History of partial mastectomy of right breast History of tonsillectomy Hx of cataract surgery Surgical history unknown PT REPORTS CAN'T REMEMBER ALL OF HER SURGERIES Family History Father Rheumatoid arthritis Colorectal cancer Mother Diabetes Colorectal cancer Unknown Hypertension Brain cancer Heart disease Brother H/O lower limb amputation Alcoholism Son Crohn's disease Diabetes Other Has 1 child Denies family history of Ovarian cancer Prostate cancer Breast cancer Lung cancer Social History Smoking Status: Never smoker Second Hand Exposure: No; Hx Alcohol Use: No Hx Substance Use: No Preferred Language: German Communication Ability: Impaired Visual Impairment: Limited Hearing Ability: Normal Buttonhole Facer Required: No marital status: / Current Living Situation: Alone current occupational status: retired How many Children do You have: 3 Feels Safe at Home: Yes Childhood Exposure to Second-Hand Smoke: No caffeine: Yes Dental Care, Regularly: Yes Physical Activity Frequency: Does not Exercise Seatbelt Use: never Sunscreen Use: Yes Assistive Devices: Cane and Glasses Review of Systems Review of Systems: Unobtainable due to cognitive status Physical Exam Physical Exam: gen - very confused, unable to give any meaningful history; tremors noted eyes - PERRL HENT - TMs clear b/l, mouth with mildly dry MM neck - no JVD, no masses, no signs of trauma face - no signs of trauma heart - RRR, s1 s2 lungs - CTA b/l abd - soft NT BS+; mildly distended; no HSM ext - lymphedema of legs extending to the thighs, pulses 2+ b/l skin - ulcers x 2 on left anterior soler; no drainage; no signs of cellulitis musculo - passive ROM of right hip without pain; VERY tender with passive ROM of left hip; pushing on the pelvis, however, did not cause pain psych - oriented to person only neuro - severe tremors of arms b/l; no facial droop; strength b/l upper extremities 5/5; strength ankle dorsiflexion/plantarflexion 5/5 Results & Data Results & Data ([facility]) Vital Signs (Past 12 Hours) Vital Signs Temp Pulse Pulse Resp BP BP Pulse Ox 06/10/22 13:06 71 16 146/60 H 97 06/10/22 12:01 82 13 117/48 L 98 06/10/22 11:33 98 06/10/22 10:52 37.0 C 78 19 119/65 98 O2 Del Method 06/10/22 13:06 Room Air 06/10/22 12:01 Room Air 06/10/22 11:33 Room Air 06/10/22 10:52 Room Air Laboratory Results Laboratory Results - last 24 hr 06/10/22 06/10/22 06/10/22 11:30 11:30 11:48 WBC 10.67 RBC 3.69 L Hgb 11.6 L Hct 35.0 MCV 94.9 MCH 31.4 MCHC 33.1 RDW Std Deviation 43.5 RDW Coeff of Deirdre 12.5 Plt Count 165 MPV 10.9 Immature Gran % (Auto) 0.7 Neut % (Auto) 84.6 Lymph % (Auto) 7.4 Arthur % (Auto) 7.0 Eos % (Auto) 0.1 Baso % (Auto) 0.2 Neut # (Auto) 9.02 H Lymph # (Auto) 0.79 L Arthur # (Auto) 0.75 Eos # (Auto) 0.01 Baso # (Auto) 0.02 Immature Gran # (Auto) 0.08 H Sodium Potassium Chloride Carbon Dioxide Anion Gap BUN Creatinine Est Cr Clr Drug Dosing Est GFR ( Amer) Est GFR (Non-Af Amer) BUN/Creatinine Ratio Glucose POC Glucose Calcium Magnesium Total Bilirubin AST ALT Alkaline Phosphatase Total Creatine Kinase Troponin I High Sens Total Protein Albumin Globulin Albumin/Globulin Ratio TSH Urine Color Yellow Urine Appearance Clear Urine pH 5.0 Ur Specific Beulah 1.014 Urine Protein Negative Urine Glucose (UA) Negative Urine Ketones Negative Urine Blood Trace H Urine Nitrite Negative Urine Bilirubin Negative Urine Urobilinogen Negative Ur Leukocyte Esterase Trace H Urine WBC (Auto) 1-5 Urine RBC (Auto) 0-4 U Hyaline Cast (Auto) 0 U Epithel Cells (Auto) 10-20 H Urine Bacteria (Auto) 1+ H SARS-CoV-2, RNA, NAAT NEGATIVE 06/10/22 06/10/22 06/10/22 11:48 11:48 11:48 WBC RBC Hgb Hct MCV MCH MCHC RDW Std Deviation RDW Coeff of Deirdre Plt Count MPV Immature Gran % (Auto) Neut % (Auto) Lymph % (Auto) Arthur % (Auto) Eos % (Auto) Baso % (Auto) Neut # (Auto) Lymph # (Auto) Arthur # (Auto) Eos # (Auto) Baso # (Auto) Immature Gran # (Auto) Sodium 136 Potassium 3.9 Chloride 100 Carbon Dioxide 25 Anion Gap 11 BUN 58 H Creatinine 1.49 H Est Cr Clr Drug Dosing 24.6 Est GFR ( Amer) 35.7 Est GFR (Non-Af Amer) 30.8 BUN/Creatinine Ratio 38.9 H Glucose 178 H POC Glucose Calcium 9.4 Magnesium 2.2 Total Bilirubin 0.4 AST 27 ALT 30 Alkaline Phosphatase 120 H Total Creatine Kinase 146 Troponin I High Sens 12.4 Total Protein 7.8 Albumin 4.0 Globulin 3.8 Albumin/Globulin Ratio 1.1 TSH 1.484 Urine Color Urine Appearance Urine pH Ur Specific Beulah Urine Protein Urine Glucose (UA) Urine Ketones Urine Blood Urine Nitrite Urine Bilirubin Urine Urobilinogen Ur Leukocyte Esterase Urine WBC (Auto) Urine RBC (Auto) U Hyaline Cast (Auto) U Epithel Cells (Auto) Urine Bacteria (Auto) SARS-CoV-2, RNA, NAAT 06/10/22 21:22 WBC RBC Hgb Hct MCV MCH MCHC RDW Std Deviation RDW Coeff of Deirdre Plt Count MPV Immature Gran % (Auto) Neut % (Auto) Lymph % (Auto) Arthur % (Auto) Eos % (Auto) Baso % (Auto) Neut # (Auto) Lymph # (Auto) Arthur # (Auto) Eos # (Auto) Baso # (Auto) Immature Gran # (Auto) Sodium Potassium Chloride Carbon Dioxide Anion Gap BUN Creatinine Est Cr Clr Drug Dosing Est GFR ( Amer) Est GFR (Non-Af Amer) BUN/Creatinine Ratio Glucose POC Glucose 149 H Calcium Magnesium Total Bilirubin AST ALT Alkaline Phosphatase Total Creatine Kinase Troponin I High Sens Total Protein Albumin Globulin Albumin/Globulin Ratio TSH Urine Color Urine Appearance Urine pH Ur Specific Beulah Urine Protein Urine Glucose (UA) Urine Ketones Urine Blood Urine Nitrite Urine Bilirubin Urine Urobilinogen Ur Leukocyte Esterase Urine WBC (Auto) Urine RBC (Auto) U Hyaline Cast (Auto) U Epithel Cells (Auto) Urine Bacteria (Auto) SARS-CoV-2, RNA, NAAT Diagnostic Findings Cervical Spine CT 06/10/22 11:05 CT cervical spine wo con CLINICAL HISTORY: fall with neck pain COMPARISON STUDY: No previous studies for comparison. CT DOSE: 2314.94 mGy.cm TECHNIQUE: Standard CT of the Cervical Spine was performed without IV contrast. A dose lowering technique was utilized adhering to the principles of ALARA. FINDINGS: Bones: The bones are osteopenic. There is reversal of expected cervical lordosis most likely related to the degenerative changes present. There is no evidence for an acute fracture or malalignment. The heights of the vertebral bodies are maintained. The vertebral bodies are in anatomic alignment. The odontoid is intact and the atlantoaxial articulation is within normal limits. Disc spaces: There is marked disc space narrowing from C4 through C7 with minimal endplate sclerosis and osteophyte formation. Apophyseal joints: Degenerative apophyseal joint disease is also seen bilaterally. Soft tissues: The prevertebral soft tissues are within normal limits. IMPRESSION: 1. Osteopenia with no acute osseous pathology. 2. 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 ACT 112: Negative or not required by law. Electronically signed by: Uri Jay M.D. 06/10/2022 1:[address] 06/10/22 11:05 CT head/brain wo con CLINICAL HISTORY: weak, fall with trauma to the head COMPARISON STUDY: 01/10/2022 CT DOSE: TECHNIQUE: Standard CT of the Brain was performed without IV contrast. A dose lowering technique was utilized adhering to the principles of ALARA. FINDINGS: Extraaxial space: There is no evidence for subdural hematoma. There are no extra-axial fluid collections. Ventricles and cisterns: The ventricles are again mildly dilated bilaterally. There is no evidence for midline shift or mass effect. Parenchyma: There is no subarachnoid or intraparenchymal hemorrhage. There is no evidence for an acute infarct or cerebral edema. There is mild cerebral cortical atrophy and decreased attenuation in the periventricular white matter representing remote small vessel disease. There are no gross mass lesions. Osseous structures: There is no evidence for an acute fracture. The visualized paranasal sinuses are clear. The mastoid air cells are clear bilaterally. Soft tissues: There is no evidence for focal soft tissue swelling. IMPRESSION: 1. No acute intracerebral pathology. 2. 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 ACT 112: Negative or not required by law. Electronically signed by: Uri Jay M.D. 06/10/2022 1:[address] 06/10/22 11:05 CT lumbar spine wo con CLINICAL HISTORY: Fall with lower back pain COMPARISON STUDY: No previous studies for comparison. CT DOSE: TECHNIQUE: Standard CT of the Lumbar Spine was performed without IV contrast. A dose lowering technique was utilized adhering to the principles of ALARA. FINDINGS: Bones: The bones are osteopenic. There is degenerative grade 1/4 spondylolisthesis of L3 on L4 and L4 on L5. There is no evidence for an acute fracture or malalignment. The heights of the vertebral bodies are maintained. The vertebral bodies are in anatomic alignment. Disc spaces: There is moderate to marked disc space narrowing present at L3-4, L4-5 and L5-S1 with vacuum disc phenomena present. Bulging annuli and thickening of the ligamentum flavum are also present at each of these levels. There is associated moderate central canal stenosis at L3-4, moderate to marked central canal stenosis at L4-5 and mild central canal stenosis at L5-S1. Facet joints: Hypertrophic facet joint disease is seen particularly at the lower 3 disc space levels. The sacroiliac joints are intact bilaterally. Soft tissues: The prevertebral soft tissues are within normal limits. IMPRESSION: 1. Osteopenia with no acute osseous pathology. 2. 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 3. There is associated central canal stenosis at the lower 3 disc space levels.. ACT 112: Negative or not required by law. Electronically signed by: Uri Jay M.D. 06/10/2022 1:[address] 06/10/22 11:05 CT thoracic spine wo con CLINICAL HISTORY: fall, pain upper back COMPARISON STUDY: No previous studies for comparison. CT DOSE: TECHNIQUE: Standard CT of the Thoracic Spine was performed without IV contrast. A dose lowering technique was utilized adhering to the principles of ALARA. FINDINGS: Bones: The bones are osteopenic. There is no evidence for an acute fracture or malalignment. The heights of the vertebral bodies are maintained. The vertebral bodies are in anatomic alignment. Disc spaces: There is moderate disc space narrowing seen throughout the thoracic spine with endplate sclerosis and osteophyte formation. Pedicles::The pedicles are intact bilaterally. Soft tissues: The paraspinal soft tissues are within normal limits. IMPRESSION: 1. Osteopenia with no acute osseous pathology. 2. Moderate disc space narrowing ACT 112: Negative or not required by law. Electronically signed by: Uri Jay M.D. 06/10/2022 1:18 PM Chest X-Ray 06/10/22 11:06 XR chest 1V portable CLINICAL HISTORY: fall, weak. Evaluate cardiopulmonary status COMPARISON STUDY: 01/10/2022 TECHNIQUE: 1 view of the chest FINDINGS: Single frontal view of the chest demonstrates the cardiomediastinal silhouette to be within normal limits. There is again asymmetric elevation of the right hemidiaphragm with crowding the bronchovascular markings at the right lung base. The lungs are clear of alveolar opacities. There is no evidence for pleural effusion. There is no evidence for vascular congestion. There is no acute osseous pathology. IMPRESSION: 1. No acute cardiopulmonary disease. ACT 112: Negative or not required by law. Electronically signed by: Uri Jay M.D. 06/10/2022 11:[address] 06/10/22 13:56 CT chest diagnostic wo con CLINICAL HISTORY: Status post fall with back pain. History of previous lung cancer with suspicion of lung lesions. COMPARISON STUDY: CT of the chest from 04/27/2019 CT DOSE: TECHNIQUE: Standard CT of the Chest was performed without IV contrast. A dose lowering technique was utilized adhering to the principles of ALARA. FINDINGS: Airway: The airway is clear. No endobronchial lesion is identified. Lungs: Compared to the previous CT, there is again a spiculated masslike consolidation with solid and groundglass attenuation in the right suprahilar upper lobe measuring approximately 3.3 x 2.3 cm when compared to 2.8 x 2.3 cm on the previous study. A large irregular and spiculated multilobular masslike consolidation is again seen at the right lung base measuring approximately 8.1 x 5.8 cm when compared to 6.4 x 5.2 cm in the previous study. Additionally, a new pulmonary nodule is seen at the left lung base measuring 1.6 cm in greatest diameter. This is characteristic of new metastatic lung disease. No other pulmonary nodules are identified. Pleura: There is no evidence for pleural effusion. There is no evidence for pneumothorax. Mediastinum: There is no evidence for pathologic adenopathy on these limited noncontrast images. The heart size is enlarged. Coronary artery calcification is present. The thoracic aorta is within normal limits. There is no evidence for pericardial effusion. Upper abdomen: The adrenal glands are normal bilaterally. There is a small to moderate size hiatal hernia. Osseous structures: There is no acute osseous pathology. IMPRESSION: 1. Interval increase in previously identified right lower lobe lung mass. 2. No significant change in right upper lobe lung mass. 3. New left lower lobe pulmonary nodule characteristic of metastatic disease. 4. No other evidence for acute chest disease. ACT 112: Negative or not required by law. Electronically signed by: Uri Jay M.D. 06/10/2022 2:36 PM Hip/Pelvis X-Ray 06/10/22 16:21 XR hip LT 2V w pelvis CLINICAL HISTORY: severe L hip pain, s/p fall; fracture?. COMPARISON STUDY: 01/10/2022 TECHNIQUE: AP pelvis and 2 left hip views FINDINGS: Bones: The bones are osteopenic. There is no evidence for an acute fracture or dislocation. There is no lytic or blastic lesion. Joints: There is moderate narrowing of the hip joint space superiorly. The bones are in anatomic alignment. Soft tissues: There is no focal soft tissue abnormality. There is no radiopaque foreign body. IMPRESSION: 1. No acute osseous pathology. 2. Osteopenia and osteoarthritis. ACT 112: Negative or not required by law. Electronically signed by: Uri Jay M.D. 06/10/2022 5:14 PM EKG -- my reading - NSR, nonspecific ST changes anteroseptal leads, artifact Code Status & VTE Plan Code Status unable to reach family to discuss code status; patient, due to confusion, unable to engage in discussion re: code status -- thus, full code for now VTE Prophylaxis Plan VTE Prophylaxis will be ordered: Yes PG Care Time/CCT Total # of Minutes Spent Total Time Spent with Patient: Total time spent is greater than 50% in coordination of care (as documented) at patient's floor/unit and/or counseling patient: Coding Level of Care Code INT OBSERVATION CARE 70M LVL 3 Diagnoses Fall W19.XXXA Encounter type: initial encounter Left hip pain M25.552 Acute kidney injury N17.9 UTI (urinary tract infection) N39.0 Acute metabolic encephalopathy G93.41 Venous ulcer of left leg I83.029; L97.929 Abnormal EKG R94.31 Ambulatory dysfunction R26.2 Dementia with behavioral disturbance F03.91 Dementia type: unspecified type Acquired lymphedema I89.0 Primary mucinous adenocarcinoma of lung C34.90 Hypertension I10 Hyperlipidemia E78.5 Diabetes mellitus with renal manifestations, controlled E11.29 Hypomagnesemia E83.42 Essential tremor G25.0 CAD (coronary artery disease) I25.10 DVT prophylaxis Z29.9 (1) Dementia with behavioral disturbance Dementia type: unspecified type Qualified Code(s): F03.91 - Unspecified dementia with behavioral disturbance (2) Fall Encounter type: initial encounter Qualified Code(s): W19.XXXA - Unspecified fall, initial encounter
[2022-06-10] MEDS ORDERED: cefTRIAXone SODIUM 2,000 MG/70 ML BAG IV STA (16:30)
--- NOTE | 2022-06-10 17:17 | XRay Report ---
XR hip LT 2V w pelvis CLINICAL HISTORY: severe L hip pain, s/p fall; fracture?. COMPARISON STUDY: 01/10/2022 TECHNIQUE: AP pelvis and 2 left hip views FINDINGS: Bones: The bones are osteopenic. There is no evidence for an acute fracture or dislocation. There is no lytic or blastic lesion. Joints: There is moderate narrowing of the hip joint space superiorly. The bones are in anatomic alig nment. Soft tissues: There is no focal soft tissue abnormality. There is no radiopaque foreign body. IMPRESSION: 1. No acute osseous pathology. 2. Osteopenia and osteoarthritis. ACT 112: Negative or not required by law. Electronically signed by: Uri Jay M.D. 06/10/2022 5:14 PM
[2022-06-10] MEDS ORDERED: ONDANSETRON INJ 2 MG/ML 2 ML VIAL IV PRN (20:35)
[2022-06-10] MEDS ORDERED: SODIUM CHLORIDE 0.9% 1000ML 1,000 ML IV SCH (20:35)
[2022-06-10] MEDS ORDERED: ACETAMINOPHEN 325 MG TAB PO PRN (20:35)
[2022-06-10] MEDS: PRIMIDONE 50 MG TAB PO SCH (21:55)
[2022-06-10] MEDS: INSULIN DETEMIR FLEXPEN/FLEX TOUCH 100 UNITS/ML 3ML SQ SCH (21:58)
[2022-06-10] MEDS: INSULIN ASPART PER UNIT SC SCH (23:46)
--- NOTE | 2022-06-11 00:30 | Communication Note ---
Date of Service: June 11, 2022 Notified by nursing of elevated troponin. HS-Trop from 12.4 --> 1739.2. Patient with history of CAD, not on ASA at present on home meds On exam she is resting comfortably, arousable and mildly confused but able to answer yes and no She denies chest pain, SOB EKG obtained with no acute ST changes. Will add ASA 81mg po daily to medications Trend troponin Telemetry monitoring Check 2D echo in AM
[2022-06-11] MEDS ORDERED: Nursing to Pharmacy Communication SCH (04:15)
[2022-06-11] MEDS ORDERED: HEPARIN SOD 5,000 UNIT/0.5 ML VIAL SQ SCH (06:00)
[2022-06-11 06:51] LABS: Estimated Average Glucose 120 mg/dl; Hemoglobin A1C 5.8 % (4.5-5.6)
[2022-06-11 07:00] LABS: BUN Creatinine Ratio 39.6 (10-20); Calcium 8.7 mg/dl (8.5-10.1); Creatinine Clr Calc Pharmacy 34.6 ml/min; Est GFR (African American) 53.9 ml/min; Est GFR (Non-African American) 46.5 ml/min; Potassium 3.8 mmol/L (3.5-5.1)
--- NOTE | 2022-06-11 08:51 | Ultrasound Report ---
BILATERAL LOWER EXTREMITY VENOUS DOPPLER HISTORY: Acute pain and swelling of the right lower extremity severe lymphedema; eval DVT COMPARISON STUDY: None. FINDINGS: There is normal compressibility, flow, and augmentation within the bilateral lower extremit y deep venous systems. Subcutaneous edema. IMPRESSION: No DVT within the right or left lower extremity. ACT 112: Negative or not required by law. Electronically signed by: Alirio Zuleta M.D. 06/11/2022 8:49 AM
--- NOTE | 2022-06-11 09:28 | Electrocardiogram Report ---
Test Reason : Blood Pressure : / mmHG Vent. Rate : 101 BPM Atrial Rate : 101 BPM P-R Int : 152 ms QRS Dur : 086 ms QT Int : 370 ms P-R-T Axes : 070 049 048 degrees QTc Int : 479 ms Sinus tachycardia with occasional Premature ventricular complexes Low voltage QRS Cannot rule out Inferior infarct (cited on or before 10-JAN-2022) Abnormal ECG When compared with ECG of 10-JUN-2022 11:14, Premature ventricular complexes are now Present Confirmed by Vikas Rojas ([id number]) on 06/11/2022 9:27:58 AM Referred By: REFERRED SELF Confirmed By:Vikas Rojas
[2022-06-11] MEDS: INSULIN ASPART PER UNIT SC SCH ×4 (09:52→22:35)
[2022-06-11] MEDS: HEPARIN SOD 5,000 UNIT/0.5 ML VIAL SQ SCH ×3 (10:01→21:37)
[2022-06-11] MEDS: PROPRANOLOL HCL 60 MG LA CAP PO SCH (10:02)
[2022-06-11] MEDS: ASCORBIC ACID 500 MG TAB PO SCH (10:03)
[2022-06-11] MEDS: CHOLECALCIFEROL 5,000 UNITS 125 MCG TAB PO SCH (10:03)
[2022-06-11] MEDS: ASPIRIN 81 MG ECTAB PO SCH (10:03)
--- NOTE | 2022-06-11 11:32 | XCELERA ---
[id number]
--- NOTE | 2022-06-11 12:05 | Electrocardiogram Report ---
Test Reason : Blood Pressure : / mmHG Vent. Rate : 103 BPM Atrial Rate : 103 BPM P-R Int : 146 ms QRS Dur : 086 ms QT Int : 346 ms P-R-T Axes : 043 045 060 degrees QTc Int : 453 ms Poor data quality, interpretation may be adversely affected Sinus tachycardia Cannot rule out Inferior infarct (cited on or before 10-JAN-2022) Abnormal ECG When compared with ECG of 11-JUN-2022 00:26, Premature ventricular complexes are no longer Present Confirmed by Vikas Rojas ([id number]) on 06/11/2022 12:04:41 PM Referred By: REFERRED SELF Confirmed By:Vikas Rojas
[2022-06-11] MEDS ORDERED: SODIUM CHLORIDE 0.9% 500 ML IV SCH (13:15)
[2022-06-11] MEDS ORDERED: traMADol HCL 50 MG TABLET PO PRN (13:17)
[2022-06-11] MEDS ORDERED: bisacodyL 10 MG SUPP PR PRN (13:17)
--- NOTE | 2022-06-11 13:26 | Hospitalist Progress Note ---
Date of Service June 11, 2022 Assessment & Plan (1) Fall: Plan: Baseline shuffling and poor gait due to osteoarthritis per POA; did have pain on passive movementCT pelvis (2) Left hip pain: Plan: Pain control, as above (3) Acute kidney injury: Plan: Improved, BP softcontinue volume (4) UTI (urinary tract infection): Plan: Certainly can cause toxic encephalopathy though not confirmed; continue Rocephin, cultures (5) Venous ulcer of left leg: Plan: x 2. wound care consult. in meantime - aquacel ag with optifoam. she has lymphedema at baseline - would benefit from compression. (6) Ambulatory dysfunction: Plan: PT, OT evals to assess walking after CT pelvis will determine further detail (7) Dementia with behavioral disturbance: Plan: per records she has advanced dementia; per daughter rapid decline, paranoid towards family Watch for hyperactive delirium (8) Primary mucinous adenocarcinoma of lung: Plan: Per daughter known since a couple of years or so; her cardiothoracic surgeon recommended no treatment; now it appears metastasesat present nonurgent issue; depending on goals consider outpatient oncology (9) Essential tremor: Plan: severe previously followed by [facility] [place] neurology neurology felt she did NOT have PD based on records cont primidone cont inderal (10) CAD (coronary artery disease): Plan: Aspirin added; preserved LV function on echo; lipid panel; may have NSTEMI type I versus type IIdiscussion with POAconservative management, medical treatment (11) Toxic encephalopathy: Plan: Uncertain if acute change versus progression; at present treat UTI, reversible factors, observe (12) NSTEMI (non-ST elevated myocardial infarction): Plan: Type I versus type II; POA desires conservative measures (13) Diabetes: Plan: Sugars reasonableno change but avoid hypoglycemia Plan Can follow mild anemia; DNR per discussion with POA; discussed and they agree with palliative care consultation Admission and Anticipated Discharge Date Admission Date: June 11, 2022 Subjective Follow-up of presentation with fall, altered mental statuscontinues to be altered; pain on passive lower extremity movement Physical Exam Physical Exam: Constitutional and general: Confused, looks biologic age Head and face: No puffiness, atraumatic Eyes: No scleral icterus, extraocular movements normal Neck: Supple, no JVD Musculoskeletal: No acute joint swelling, no bony abnormalities Skin/dermatologic/integument: No rash, no purpura Hematologic and lymphatic: pallor +, no petechia Gastrointestinal/abdomen: Nondistended, soft, nonacute Neurologic: Cranial nerves intact, nonfocal Cardiovascular: Heart rhythm regular, no rub, soft systolic murmur, no gallop Respiratory: Chest movements equal, no use of accessory muscles, no adventitious sounds Extremities: Venous ulcer left lower extremity Results & Data Results & Data ([facility]) Vital Signs (Past 12 Hours) Vital Signs Temp Pulse Resp BP BP Pulse Ox Pulse Ox 06/11/22 12:50 36.6 C 75 18 118/70 94 06/11/22 07:55 06/11/22 07:31 37.7 C H 102 H 16 92/56 L 96 06/11/22 07:23 06/11/22 07:23 37.2 C 104 H 16 92/56 L 96 06/11/22 07:23 96 06/11/22 05:27 96 H 16 105/65 95 O2 Del Method O2 Del Method 06/11/22 12:50 Room Air 06/11/22 07:55 Room Air 06/11/22 07:31 Room Air 06/11/22 07:23 Room Air 06/11/22 07:23 Room Air 06/11/22 07:23 Room Air 06/11/22 05:27 Room Air Laboratory Results Laboratory Results - last 24 hr 06/10/22 06/10/22 06/10/22 11:48 21:22 23:22 Sodium Potassium Chloride Carbon Dioxide Anion Gap BUN Creatinine Est Cr Clr Drug Dosing Est GFR ( Amer) Est GFR (Non-Af Amer) BUN/Creatinine Ratio Glucose POC Glucose 149 H Estimat Average Glucose Hemoglobin A1c Calcium Magnesium 2.2 Troponin I High Sens 1739.2 H* D 06/10/22 06/10/22 06/11/22 23:25 23:28 06:07 Sodium 138 Potassium 3.8 Chloride 105 Carbon Dioxide 22 Anion Gap 11 BUN 42 H Creatinine 1.06 D Est Cr Clr Drug Dosing 34.6 Est GFR ( Amer) 53.9 Est GFR (Non-Af Amer) 46.5 BUN/Creatinine Ratio 39.6 H Glucose 158 H POC Glucose 210 H 204 H Estimat Average Glucose Hemoglobin A1c Calcium 8.7 Magnesium Troponin I High Sens 2595.0 H* D 06/11/22 06/11/22 06/11/22 06:07 07:26 10:49 Sodium Potassium Chloride Carbon Dioxide Anion Gap BUN Creatinine Est Cr Clr Drug Dosing Est GFR ( Amer) Est GFR (Non-Af Amer) BUN/Creatinine Ratio Glucose POC Glucose 174 H Estimat Average Glucose 120 Hemoglobin A1c 5.8 H Calcium Magnesium Troponin I High Sens 2415.8 H* PG Care Time/CCT Total # of Minutes Spent Total Time Spent with Patient: Total time spent is greater than 50% in coordination of care (as documented) at patient's floor/unit and/or counseling patient: Coding Level of Care Code 71176 Subseq Hosp Care Lvl 2 Diagnoses Fall W19.XXXA Encounter type: initial encounter Left hip pain M25.552 Acute kidney injury N17.9 UTI (urinary tract infection) N39.0 Venous ulcer of left leg I83.029; L97.929 Ambulatory dysfunction R26.2 Dementia with behavioral disturbance F03.91 Dementia type: unspecified type Primary mucinous adenocarcinoma of lung C34.90 Essential tremor G25.0 CAD (coronary artery disease) I25.10 Toxic encephalopathy G92.9 NSTEMI (non-ST elevated myocardial infarction) I21.4 Diabetes E11.9 (1) Dementia with behavioral disturbance Dementia type: unspecified type Qualified Code(s): F03.91 - Unspecified dementia with behavioral disturbance (2) Fall Encounter type: initial encounter Qualified Code(s): W19.XXXA - Unspecified fall, initial encounter
--- NOTE | 2022-06-11 14:48 | CT Scan Report ---
PELVIS CT CT DOSE: 630.31 mGy.cm HISTORY: fall; hip and pelvic pain TECHNIQUE: Multiaxial CT images of the pelvis were performed and reformatted in the sagittal and paradise nal plane without the use of contrast. A dose lowering technique was utilized adhering to the princi ples of LALITHA. COMPARISON: Abdomen and pelvis CT 01/10/2022. Pelvis and left hip radiograph 06/10/2022. FINDINGS: Suspect a subtle nondisplaced fracture at the S4 level of the distal sacrum. There is minim al presacral edema. No additional fractures identified within the pelvis or hips. Stable sclerotic fo cus within the left posterior iliac bone measuring 1.6 cm. This favors a bone island. Colonic diverti culosis. Minimal fat stranding at the distal descending colon which may represent a resolving or deve loping acute diverticulitis. This has improved compared the prior CT examination. IMPRESSION: 1. Probable subtle nondisplaced fracture at the S4 level of the distal sacrum with minimal presacral edema. 2. No additional fractures identified within the pelvis or hips. 3. Minimal fat stranding at the distal descending colon which may represent a resolving or developing acute diverticulitis. This has slightly improved in the interval. ACT 112: Negative or not required by law. Electronically signed by: Dimitrios Pena M.D. 06/11/2022 2:46 PM
[2022-06-11] MEDS: SODIUM CHLORIDE 0.9% 1000ML 1,000 ML IV SCH (15:03)
[2022-06-11] MEDS: oxyCODONE HCL IR 5 MG TAB (IMMEDIATE RELEASE) PO PRN (15:04)
[2022-06-11] MEDS: cefTRIAXone SODIUM 2,000 MG in DEXTROSE 5% 50 ML IV SCH (18:42)
[2022-06-11] MEDS: metroNIDAZOLE 500 MG TAB PO SCH (21:35)
[2022-06-11] MEDS: PRIMIDONE 50 MG TAB PO SCH (21:35)
[2022-06-11] MEDS: INSULIN DETEMIR FLEXPEN/FLEX TOUCH 100 UNITS/ML 3ML SQ SCH (22:35)
[2022-06-12] MEDS: SODIUM CHLORIDE 0.9% 1000ML 1,000 ML IV SCH (03:44)
[2022-06-12] MEDS: ASPIRIN 81 MG ECTAB PO SCH (08:13)
[2022-06-12] MEDS: ASCORBIC ACID 500 MG TAB PO SCH (08:13)
[2022-06-12] MEDS: CHOLECALCIFEROL 5,000 UNITS 125 MCG TAB PO SCH (08:14)
[2022-06-12] MEDS: PROPRANOLOL HCL 60 MG LA CAP PO SCH (08:14)
[2022-06-12] MEDS: HEPARIN SOD 5,000 UNIT/0.5 ML VIAL SQ SCH ×3 (08:14→22:32)
[2022-06-12] MEDS: POLYETHYLENE (MIRALAX) 17 GM PACK PO SCH (08:14)
[2022-06-12] MEDS: INSULIN ASPART PER UNIT SC SCH ×4 (08:15→20:42)
[2022-06-12 08:22] LABS: Basophils # (auto) 0.02 K/uL (0-0.2); Basophils % (auto) 0.2 %; Eosinophils # (auto) 0.04 K/uL (0-0.50); Eosinophils % (auto) 0.5 %; Hematocrit (blood only) 28.1 % (34.1-44.9); Hemoglobin 9.1 g/dl (12.0-16.0); Immature Granulocytes # (auto) 0.05 K/uL (0.00-0.02); Immature Granulocytes % (auto) 0.6 %; Lymphocytes # (auto) 0.76 K/uL (1.2-3.4); Lymphocytes % (auto) 8.8 %; Mean Corpuscular Hemoglobin 30.6 pg (25.0-34.0); Mean Corpuscular Hgb Conc 32.4 g/dL (32.0-36.0); Mean Corpuscular Volume 94.6 fL (80.0-100.0); Mean Platelet Volume 10.9 fL (9.4-12.3); Monocytes # (auto) 0.81 K/uL (0.24-0.82); Monocytes % (auto) 9.4 %; Neutrophils # (auto) 6.96 K/uL (1.4-6.5); Neutrophils % (auto) 80.5 %; Platelet Count 157 K/uL (130-400); RDW Coefficient of Variation 12.4 % (11.5-14.5); RDW Standard Deviation 43.1 fL (36.4-46.3); Red Blood Count 2.97 M/uL (3.93-5.22); White Blood Count 8.64 K/ul (4.8-10.8)
[2022-06-12] MEDS: metroNIDAZOLE 500 MG TAB PO SCH ×3 (08:59→20:45)
[2022-06-12] MEDS: oxyCODONE HCL IR 5 MG TAB (IMMEDIATE RELEASE) PO PRN (09:01)
[2022-06-12 09:02] LABS: Albumin Globulin Ratio 0.9 (0.9-2); Albumin Level 2.8 gm/dl (3.4-5.0); Bilirubin,Total 0.3 mg/dl (0.2-1.0); Calcium 8.4 mg/dl (8.5-10.1); Est GFR (African American) 53.9 ml/min; Est GFR (Non-African American) 46.5 ml/min; Globulin 3.1 gm/dl (2.5-4.0); Magnesium 2.1 mg/dl (1.7-2.4); Phosphorus 3.1 mg/dl (2.5-4.9); Potassium 3.7 mmol/L (3.5-5.1); Total Protein 5.9 gm/dl (6.0-8.3)
--- NOTE | 2022-06-12 12:52 | Palliative Care Consultation ---
Date of Consultation June 12, 2022 Assessment & Plan (1) Back pain: She has apparently described more of a radicular pattern to her pain though she localized it to her low back when I asked her. She does have lumbar spinal stenosis on CT. I spoke with Melissa about approaches to pain management. Oxycodone has been effective for her but with risk of delirium, constipation and falls, maximizing adjuvant therapies would be advantageous. Will start lidoderm patch which should also help with radicular pain. Continue oxycodone prn. She is on miralax daily. Back pain laterality: midline Back pain location: back pain in unspecified location Chronicity: acute Qualified Code(s): M54.9 - Dorsalgia, unspecified (2) Palliative care encounter: Melissa is POA for her mother and tells me that when that was documented, they talked about her wishes. Molly said that she did not want any measures to prolong her life and specifically said that she would not want any procedures. She has a living will which is consistent with this. Melissa's hope is that her mother be transferred to a SNF when stable for discharge. She is not able to care for herself at home and family is not able to provide additional care. Focus of care would be comfort with no hospitalization unless her comfort could not be managed at the SNF. Will complete POLST prior to discharge to document this. (3) Dementia: (4) Primary mucinous adenocarcinoma of lung: (5) CAD (coronary artery disease): History of Present Illness Reason for Consultation: goals of care Requesting Physician: Dr. Low Attending Physician: Joe Low MD History of Present Illness 89 yo lady with history of dementia and CAD. She presented with a small sacral fracture after a fall at home and was found to have EMILY and a NSTEMI. 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 She is sleeping but easily arousable and very pleasant. She tells me that she is doing better today. She denies pain at this time, though her daughter tells me that she had been complaining of pain earlier in the day. She does have prn oxycodone and had one prn dose this morning. Her daughter tells me that Molly often has adverse reactions to medications. Molly does not recall how she got here and is not oriented to time. Her daughter, Melissa, tells me that she has been getting more confused at home and having more difficulty with ADLs. She has difficulty getting around due to back pain. Allergies Allergy/AdvReac Type Severity Reaction Status Date / Time carbidopa Allergy Unknown "GO CRAZY" Verified 04/23/22 13:08 latex Allergy Unknown ITCHY/RASH Verified 04/23/22 13:08 levodopa Allergy Unknown "GO CRAZY" Verified 04/23/22 13:08 Penicillins Allergy Unknown PT NOT SURE Verified 04/23/22 13:08 amlodipine [From Caduet] AdvReac Unknown Verified 04/23/22 13:08 atorvastatin [From Lipitor] AdvReac Unknown Verified 04/23/22 13:08 doxycycline AdvReac Unknown Verified 04/23/22 13:08 lisinopril AdvReac Unknown Verified 04/23/22 13:08 losartan AdvReac Unknown Verified 04/23/22 13:08 meclizine AdvReac Unknown Verified 04/23/22 13:08 morphine AdvReac Unknown ITCHINESS Verified 04/23/22 13:08 pramipexole [From Mirapex] AdvReac Unknown Verified 04/23/22 13:08 topiramate [From Topamax] AdvReac Unknown Verified 04/23/22 13:08 Home Medications Medication Instructions Recorded Confirmed Type cholecalciferol (vitamin D3) 125 5,000 units PO QAM 06/02/20 04/23/22 History mcg (5,000 unit) tablet (Vitamin D3) loratadine 10 mg tablet 10 mg PO QAM PRN Allergy Symptoms 08/04/20 04/23/22 History ascorbic acid (vitamin C) 500 mg 500 mg PO DAILY 01/18/21 04/23/22 History tablet blood sugar diagnostic (NextBioTouch #100 ea 08/16/21 04/23/22 Rx Verio test strips) blood-glucose meter (OneTouch #1 ea 08/16/21 04/23/22 Rx Verio Meter) lancets 30 gauge (OneTouch Delica #200 ea 08/16/21 04/23/22 Rx Lancets) fluticasone propionate 50 1 spray intranasal BID PRN nasal 09/20/21 04/23/22 Rx mcg/actuation nasal congestion #16 grams spray,suspension (Flonase Allergy Relief) pen needle, diabetic 32 gauge x #100 ea 12/26/21 04/23/22 Rx 32" (BD Ultra-Fine Samia Pen Needle) propranolol 60 mg capsule,24 60 mg PO QAM tremors #90 caps 01/08/22 04/23/22 Rx hr,extended release diphenoxylate-atropine 2.5 1 tab PO BID PRN diarrhea #30 tabs 02/20/22 04/23/22 Rx mg-0.025 mg tablet (Lomotil) cod liver oil 2 cap PO DAILY PRN 04/23/22 04/23/22 History diphenhydramine 25 4 tab PO HS 04/23/22 04/23/22 History mg-acetaminophen 500 mg tablet (Tylenol PM Extra Strength) insulin detemir U-100 100 unit/mL 10 unit (0.1 mL) subcut HS #3 mL 04/23/22 04/23/22 Rx (3 mL) subcutaneous pen (Levemir FlexTouch U-100 Insulin) primidone 50 mg tablet See Rx Instructions .Route .COMPLEX 04/23/22 History turmeric 400 mg capsule 800 mg PO DAILY PRN 04/23/22 04/23/22 History furosemide 40 mg tablet 80 mg PO QAM #180 tabs 05/01/22 Rx Patient History Medical History Asthma CKD (chronic kidney disease) Dementia Diabetes mellitus with renal manifestations, controlled Diabetic peripheral neuropathy Essential tremor followed by [facility] [place] Neurology Gait disturbance GERD (gastroesophageal reflux disease) Hearing loss Hiatal hernia History of breast cancer RIGHT BREAST (>20 YEARS AGO) History of myocardial infarction History of skin cancer Hyperlipidemia Hypertension Lymphedema MEGAN (obstructive sleep apnea) NO CPAP Osteoarthritis Osteoporosis 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 Ongoing Observation with Ct, no tx desired by Pt. Right knee DJD Venous insufficiency Surgical History H/O hysterectomy with oophorectomy History of anesthesia reaction PT REPORTS SLOW TO WAKE UP - Takes a few hours History of appendectomy History of colonoscopy History of evacuation of hematoma LEG History of laparotomy (~1984) DUE TO ABDOMINAL ADHESIONS History of partial mastectomy of right breast History of tonsillectomy Hx of cataract surgery Surgical history unknown PT REPORTS CAN'T REMEMBER ALL OF HER SURGERIES Family History Father Rheumatoid arthritis Colorectal cancer Mother Diabetes Colorectal cancer Unknown Hypertension Brain cancer Heart disease Brother H/O lower limb amputation Alcoholism Son Crohn's disease Diabetes Other Has 1 child Denies family history of Ovarian cancer Prostate cancer Breast cancer Lung cancer Social History Smoking Status: Never smoker Second Hand Exposure: No; Hx Alcohol Use: No Hx Substance Use: No Preferred Language: Tamazight Communication Ability: Effective Visual Impairment: Limited Hearing Ability: Normal Data Integration Analyst Required: No Beliefs That Will Affect Care: None marital status: Current Living Situation: Alone current occupational status: retired How many Children do You have: 3 Other Information That Helps Us Care for You: No Feels Safe at Home: Yes Childhood Exposure to Second-Hand Smoke: No caffeine: Yes Dental Care, Regularly: Yes Physical Activity Frequency: Does not Exercise Seatbelt Use: never Sunscreen Use: Yes Assistive Devices: Cane, Scooter/Electric Scooter and Other Assistive Devices Comment: transport chair Review of Systems Review of Systems: Unobtainable due to cognitive status ESAS Pain 0/3 Dyspnea 0/3 Drowsiness 0/3 PPS 40% Physical Exam Constitutional: no acute distress ENMT: Mouth: oral mucous membranes not dry Respiratory: normal respiratory effort; no labored breathing Cardiovascular: Rate/Rhythm: regular rate and regular rhythm Neurologic: awake and + confused Speech / Cognition: + abnormal cognition Results & Data ([facility]) Vital Signs (Past 12 Hours) Vital Signs Temp Pulse Pulse Resp BP Pulse Ox O2 Del Method 06/12/22 11:07 97.5 F L 78 18 97/59 L 93 Room Air 06/12/22 08:01 73 06/12/22 06:37 97.9 F 64 18 111/63 96 Room Air 06/12/22 04:00 98.2 F 79 18 102/69 93 Room Air PG Care Time/CCT Total # of Minutes Spent Total Time Spent: 56 Total Time Spent with Patient: Total time spent is greater than 50% in coordination of care (as documented) at patient's floor/unit and/or counseling patient: symptom management, goals of care, family education and support [phone] Coding Level of Care Code 12016 Initial Inpt Care Lvl 2 Diagnoses Back pain M54.9 Back pain laterality: midline Back pain location: back pain in unspecified location Chronicity: acute Palliative care encounter Z51.5 Dementia F03.90 Primary mucinous adenocarcinoma of lung C34.90 CAD (coronary artery disease) I25.10
--- NOTE | 2022-06-12 13:04 | Orthopedic Consultation ---
Date of Consultation June 12, 2022 Assessment & Plan (1) Sacral fracture: X-rays and CT scans reviewed. Degenerative changes noted. Pelvic CT reviewed with Dr. Mancia. Miniscule fracture at the area of S4. No other fractures identified. She has some obvious joint space narrowing of both hips and osteop enia is noted. Venous Doppler negative for DVT. What the patient described to me earlier was her whole leg was severely painful when she was initially coming in. This sounded more radicular in nature. Lumbar CT showing narrowing at 3 disc spaces as well as degenerative changes. Her exam was mostly benign and she was somewhat surprised how well her leg felt during moving it. I suspect that some of her pain may have been radicular in nature. With her current films from her hip being benign, and her exam essentially being fairly benign, she may have had some irritation to the nerve root at the time of admission however this has seemed to have calmed down. If she continues to have this partial or full leg length pain, consider lumbar MRI. Continue pain medication as necessary. Consider a warm K pad to the lumbar sacral area. WBAT for transfers/ambulation. 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 At the time of the admission the patient was confused and history was somewhat difficult to get from the patient. Patient does have a history of dementia. Patient has a history of multiple falls over the past. Currently she is sitting up in her bed awake and alert and does give some history of multiple falls that she has had. At this time she states that she is not here secondary to a fall however she had taken her scooter down to the mailbox to see if she had any male and somehow lost control of the scooter and questionably fell off of it or put the scooter into the flower bed. She states that she was helped by a local client delivery specialist and neighbor back to her house. During her admission, she was complaining of left hip pain. Plain films were negative for any type of fracture or dislocation. Continues to complain of left lower extremity pain and a CT scan was ordered. This did not show any type of hip fracture however did show question of a sacral fracture at S4. With her continued pain at that time, we were asked to see her for the questionable sacral fracture. Currently upon entering the room the patient appears comfortable. She does complain of pain in the lower extremity pointing to upper thigh and going down the leg. She does give an account of at least 4 or 5 falls that she has had over a period of time however with her history of dementia, history was also taken from the chart. Allergies Allergy/AdvReac Type Severity Reaction Status Date / Time carbidopa Allergy Unknown "GO CRAZY" Verified 04/23/22 13:08 latex Allergy Unknown ITCHY/RASH Verified 04/23/22 13:08 levodopa Allergy Unknown "GO CRAZY" Verified 04/23/22 13:08 Penicillins Allergy Unknown PT NOT SURE Verified 04/23/22 13:08 amlodipine [From Caduet] AdvReac Unknown Verified 04/23/22 13:08 atorvastatin [From Lipitor] AdvReac Unknown Verified 04/23/22 13:08 doxycycline AdvReac Unknown Verified 04/23/22 13:08 lisinopril AdvReac Unknown Verified 04/23/22 13:08 losartan AdvReac Unknown Verified 04/23/22 13:08 meclizine AdvReac Unknown Verified 04/23/22 13:08 morphine AdvReac Unknown ITCHINESS Verified 04/23/22 13:08 pramipexole [From Mirapex] AdvReac Unknown Verified 04/23/22 13:08 topiramate [From Topamax] AdvReac Unknown Verified 04/23/22 13:08 Home Medications Medication Instructions Recorded Confirmed Type cholecalciferol (vitamin D3) 125 5,000 units PO QAM 06/02/20 04/23/22 History mcg (5,000 unit) tablet (Vitamin D3) loratadine 10 mg tablet 10 mg PO QAM PRN Allergy Symptoms 08/04/20 04/23/22 History ascorbic acid (vitamin C) 500 mg 500 mg PO DAILY 01/18/21 04/23/22 History tablet blood sugar diagnostic (OneTouch #100 ea 08/16/21 04/23/22 Rx Verio test strips) blood-glucose meter (OneTouch #1 ea 08/16/21 04/23/22 Rx Verio Meter) lancets 30 gauge (OneTouch Delica #200 ea 08/16/21 04/23/22 Rx Lancets) fluticasone propionate 50 1 spray intranasal BID PRN nasal 09/20/21 04/23/22 Rx mcg/actuation nasal congestion #16 grams spray,suspension (Flonase Allergy Relief) pen needle, diabetic 32 gauge x #100 ea 12/26/21 04/23/22 Rx 5/32" (BD Ultra-Fine Samia Pen Needle) propranolol 60 mg capsule,24 60 mg PO QAM tremors #90 caps 01/08/22 04/23/22 Rx hr,extended release diphenoxylate-atropine 2.5 1 tab PO BID PRN diarrhea #30 tabs 02/20/22 04/23/22 Rx mg-0.025 mg tablet (Lomotil) cod liver oil 2 cap PO DAILY PRN 04/23/22 04/23/22 History diphenhydramine 25 4 tab PO HS 04/23/22 04/23/22 History mg-acetaminophen 500 mg tablet (Tylenol PM Extra Strength) insulin detemir U-100 100 unit/mL 10 unit (0.1 mL) subcut HS #3 mL 04/23/22 04/23/22 Rx (3 mL) subcutaneous pen (Levemir FlexTouch U-100 Insulin) primidone 50 mg tablet See Rx Instructions .Route .COMPLEX 04/23/22 History turmeric 400 mg capsule 800 mg PO DAILY PRN 04/23/22 04/23/22 History furosemide 40 mg tablet 80 mg PO QAM #180 tabs 05/01/22 Rx Patient History Medical History Asthma CKD (chronic kidney disease) Dementia Diabetes mellitus with renal manifestations, controlled Diabetic peripheral neuropathy Essential tremor followed by [facility] Neurology Gait disturbance GERD (gastroesophageal reflux disease) Hearing loss Hiatal hernia History of breast cancer RIGHT BREAST (>20 YEARS AGO) History of myocardial infarction History of skin cancer Hyperlipidemia Hypertension Lymphedema MEGAN (obstructive sleep apnea) NO CPAP Osteoarthritis Osteoporosis 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 Ongoing Observation with Ct, no tx desired by Pt. Right knee DJD Venous insufficiency Surgical History H/O hysterectomy with oophorectomy History of anesthesia reaction PT REPORTS SLOW TO WAKE UP - Takes a few hours History of appendectomy History of colonoscopy History of evacuation of hematoma LEG History of laparotomy (~1984) DUE TO ABDOMINAL ADHESIONS History of partial mastectomy of right breast History of tonsillectomy Hx of cataract surgery Surgical history unknown PT REPORTS CAN'T REMEMBER ALL OF HER SURGERIES Family History Father Rheumatoid arthritis Colorectal cancer Mother Diabetes Colorectal cancer Unknown Hypertension Brain cancer Heart disease Brother H/O lower limb amputation Alcoholism Son Crohn's disease Diabetes Other Has 1 child Denies family history of Ovarian cancer Prostate cancer Breast cancer Lung cancer Social History Smoking Status: Never smoker Second Hand Exposure: No; Hx Alcohol Use: No Hx Substance Use: No Preferred Language: [place] Communication Ability: Effective Visual Impairment: Limited Hearing Ability: Normal Irrigation System Operator Required: No Beliefs That Will Affect Care: None marital status: Current Living Situation: Alone current occupational status: retired How many Children do You have: 3 Other Information That Helps Us Care for You: No Feels Safe at Home: Yes Childhood Exposure to Second-Hand Smoke: No caffeine: Yes Dental Care, Regularly: Yes Physical Activity Frequency: Does not Exercise Seatbelt Use: never Sunscreen Use: Yes Assistive Devices: Cane, Scooter/Electric Scooter and Other Assistive Devices Comment: transport chair Physical Exam Physical Exam: Patient is an 89-year-old white female who appears her stated age. She is pleasantly confused at times and then other times answers questions appropriately. She is in no acute distress. Examination of her left lower extremity, it appears equal in length compared to the right. He does have lymphedema of the lower extremities and she has a noted area of Optifoam dressings over the left lateral lower leg. The Optifoam dressings are peeled back to reveal some skin tears that have happened over the last several days. She has a mild erythema around this area. He does have some slight tenderness when palpating around this area. Palpating the left calf does not elicit a painful response and she has negative Homans. She is able to take her left ankle through range of motion without discomfort. Palpation of the left knee is nontender. She has no overt swelling compared to the right. There is no erythema. Palpation of the lateral hip initially causes a painful response however locating the trochanteric area, she has no pain on deep palpation. No obvious pain on palpation over the anterior hip and thigh. No pain on palpation of the posterior thigh at this time. I am able to gently take her through passive range of motion of her left knee and hip without discomfort. Do not appreciate any crepitus from the left knee. We go through range of motion of the left hip with flexion and extension as well as internal and external rotation and abduction as well as adduction. At this time she is not having any pain. She has no pain with flexion extension of the left knee. SHe denies any pain in the right lower extremity. She states that she has had back pain in the past and I cannot elicit any pain on palpation of the lumbar area at this time. Weak SLR that does not appear to elicit pain. Might have some mild pain over the lower sacrum but is not excruciating at this time. Not to the degree that she was talking about when she first came in. She states that upon entering the hospital she had pain from the buttock all the way down to the lower extremity. There are no areas of ecchymosis over the lateral hip that I can appreciate. She is able to do some minimal active range of motion of the hip and knee without discomfort. Neuropathy noted of the lower extremities. No gross motor loss at this time. Results & Data ([facility]) Vital Signs (Past 12 Hours) Vital Signs Temp Pulse Pulse Resp BP Pulse Ox O2 Del Method 06/12/22 11:07 36.4 C L 78 18 97/59 L 93 Room Air 06/12/22 08:01 73 06/12/22 06:37 36.6 C 64 18 111/63 96 Room Air 06/12/22 04:00 36.8 C 79 18 102/69 93 Room Air Laboratory Results Laboratory Results WBC 8.64 K/ul (4.8-10.8) 06/12/22 07:51 RBC 2.97 M/uL (3.93-5.22) L 06/12/22 07:51 Hgb 9.1 g/dl (12.0-16.0) L 06/12/22 07:51 Hct 28.1 % (34.1-44.9) L 06/12/22 07:51 MCV 94.6 fL (80.0-100.0) 06/12/22 07:51 MCH 30.6 pg (25.0-34.0) 06/12/22 07:51 MCHC 32.4 g/dL (32.0-36.0) 06/12/22 07:51 RDW Std Deviation 43.1 fL (36.4-46.3) 06/12/22 07:51 RDW Coeff of Deirdre 12.4 % (11.5-14.5) 06/12/22 07:51 Plt Count 157 K/uL (130-400) 06/12/22 07:51 MPV 10.9 fL (9.4-12.3) 06/12/22 07:51 Immature Gran % (Auto) 0.6 % 06/12/22 07:51 Neut % (Auto) 80.5 % 06/12/22 07:51 Lymph % (Auto) 8.8 % 06/12/22 07:51 Laurel % (Auto) 9.4 % 06/12/22 07:51 Eos % (Auto) 0.5 % 06/12/22 07:51 Baso % (Auto) 0.2 % 06/12/22 07:51 Neut # (Auto) 6.96 K/uL (1.4-6.5) H 06/12/22 07:51 Lymph # (Auto) 0.76 K/uL (1.2-3.4) L 06/12/22 07:51 Laurel # (Auto) 0.81 K/uL (0.24-0.82) 06/12/22 07:51 Eos # (Auto) 0.04 K/uL (0-0.50) 06/12/22 07:51 Baso # (Auto) 0.02 K/uL (0-0.2) 06/12/22 07:51 Immature Gran # (Auto) 0.05 K/uL (0.00-0.02) H 06/12/22 07:51 Sodium 137 mmol/L (136-145) 06/12/22 07:51 Potassium 3.7 mmol/L (3.5-5.1) 06/12/22 07:51 Chloride 105 mmol/L (98-107) 06/12/22 07:51 Carbon Dioxide 26 mmol/L (21-32) 06/12/22 07:51 Anion Gap 6 (3-11) 06/12/22 07:51 BUN 35 mg/dl (6-23) H 06/12/22 07:51 Creatinine 1.06 mg/dl (0.6-1.2) 06/12/22 07:51 Est Cr Clr Drug Dosing 35.0 ml/min 06/12/22 07:51 Est GFR ( Amer) 53.9 ml/min 06/12/22 07:51 Est GFR (Non-Af Amer) 46.5 ml/min 06/12/22 07:51 BUN/Creatinine Ratio 39.6 (10-20) H 06/11/22 06:07 Glucose 158 mg/dl (70-99(Fasting)) H 06/11/22 06:07 POC Glucose 189 mg/dl (70-99) H 06/12/22 11:23 Fasting Glucose 104 mg/dl (70-99) H 06/12/22 07:51 Estimat Average Glucose 120 mg/dl 06/11/22 06:07 Hemoglobin A1c 5.8 % (4.5-5.6) H 06/11/22 06:07 Calcium 8.4 mg/dl (8.5-10.1) L 06/12/22 07:51 Phosphorus 3.1 mg/dl (2.5-4.9) 06/12/22 07:51 Magnesium 2.1 mg/dl (1.7-2.4) 06/12/22 07:51 Total Bilirubin 0.3 mg/dl (0.2-1.0) 06/12/22 07:51 AST 72 U/L (13-39) H 06/12/22 07:51 ALT 61 U/L (7-52) H 06/12/22 07:51 Alkaline Phosphatase 106 U/L (34-104) H 06/12/22 07:51 Total Creatine Kinase 146 U/L (26-192) 06/10/22 11:48 Troponin I High Sens 2415.8 pg/ml (0-14) H* 06/11/22 10:49 Total Protein 5.9 gm/dl (6.0-8.3) L D 06/12/22 07:51 Albumin 2.8 gm/dl (3.4-5.0) L 06/12/22 07:51 Globulin 3.1 gm/dl (2.5-4.0) 06/12/22 07:51 Albumin/Globulin Ratio 0.9 (0.9-2) 06/12/22 07:51 Triglycerides 114 mg/dl (0-150) 06/12/22 07:51 Cholesterol 154 mg/dl (0-200) 06/12/22 07:51 LDL Cholesterol, Calc 109 mg/dl 06/12/22 07:51 VLDL Cholesterol, Calc 23 mg/dl (0-30) 06/12/22 07:51 HDL Cholesterol 22 mg/dl 06/12/22 07:51 Cholesterol/HDL Ratio 7.0 (0-5) H 06/12/22 07:51 TSH 1.484 uIu/ml (0.300-4.500) 06/10/22 11:48 Urine Color Yellow 06/10/22 11:30 Urine Appearance Clear (Clear) 06/10/22 11:30 Urine pH 5.0 (4.5-7.5) 06/10/22 11:30 Ur Specific [place] 1.014 (1.000-1.030) 06/10/22 11:30 Urine Protein Negative (Negative) 06/10/22 11:30 Urine Glucose (UA) Negative (Negative) 06/10/22 11:30 Urine Ketones Negative (Negative) 06/10/22 11:30 Urine Blood Trace (Negative) H 06/10/22 11:30 Urine Nitrite Negative (Negative) 06/10/22 11:30 Urine Bilirubin Negative (Negative) 06/10/22 11:30 Urine Urobilinogen Negative (Negative) 06/10/22 11:30 Ur Leukocyte Esterase Trace (Negative) H 06/10/22 11:30 Urine WBC (Auto) 1-5 /hpf (0-5) 06/10/22 11:30 Urine RBC (Auto) 0-4 /hpf (0-4) 06/10/22 11:30 U Hyaline Cast (Auto) 0 /lpf (0-5) 06/10/22 11:30 U Epithel Cells (Auto) 10-20 /lpf (0-5) H 06/10/22 11:30 Urine Bacteria (Auto) 1+ (Negative) H 06/10/22 11:30 SARS-CoV-2, RNA, NAAT NEGATIVE (NEGATIVE) 06/10/22 11:[address] 06/10/22 11:05 CT head/brain wo con CLINICAL HISTORY: weak, fall with trauma to the head COMPARISON STUDY: 01/10/2022 CT DOSE: TECHNIQUE: Standard CT of the Brain was performed without IV contrast. A dose lowering technique was utilized adhering to the principles of ALARA. FINDINGS: Extraaxial space: There is no evidence for subdural hematoma. There are no extra-axial fluid collections. Ventricles and cisterns: The ventricles are again mildly dilated bilaterally. There is no evidence for midline shift or mass effect. Parenchyma: There is no subarachnoid or intraparenchymal hemorrhage. There is no evidence for an acute infarct or cerebral edema. There is mild cerebral cortical atrophy and decreased attenuation in the periventricular white matter representing remote small vessel disease. There are no gross mass lesions. Osseous structures: There is no evidence for an acute fracture. The visualized paranasal sinuses are clear. The mastoid air cells are clear bilaterally. Soft tissues: There is no evidence for focal soft tissue swelling. IMPRESSION: 1. No acute intracerebral pathology. 2. 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 ACT 112: Negative or not required by law. Electronically signed by: Uri Jay M.D. 06/10/2022 1:[address] 06/10/22 11:05 CT lumbar spine wo con CLINICAL HISTORY: Fall with lower back pain COMPARISON STUDY: No previous studies for comparison. CT DOSE: TECHNIQUE: Standard CT of the Lumbar Spine was performed without IV contrast. A dose lowering technique was utilized adhering to the principles of ALARA. FINDINGS: Bones: The bones are osteopenic. There is degenerative grade 1/4 spondylolisthesis of L3 on L4 and L4 on L5. There is no evidence for an acute fracture or malalignment. The heights of the vertebral bodies are maintained. The vertebral bodies are in anatomic alignment. Disc spaces: There is moderate to marked disc space narrowing present at L3-4, L4-5 and L5-S1 with vacuum disc phenomena present. Bulging annuli and thickening of the ligamentum flavum are also present at each of these levels. There is associated moderate central canal stenosis at L3-4, moderate to marked central canal stenosis at L4-5 and mild central canal stenosis at L5-S1. Facet joints: Hypertrophic facet joint disease is seen particularly at the lower 3 disc space levels. The sacroiliac joints are intact bilaterally. Soft tissues: The prevertebral soft tissues are within normal limits. IMPRESSION: 1. Osteopenia with no acute osseous pathology. 2. 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 3. There is associated central canal stenosis at the lower 3 disc space levels.. ACT 112: Negative or not required by law. Electronically signed by: Uri Jay M.D. 06/10/2022 1:[address] 06/10/22 11:05 CT thoracic spine wo con CLINICAL HISTORY: fall, pain upper back COMPARISON STUDY: No previous studies for comparison. CT DOSE: TECHNIQUE: Standard CT of the Thoracic Spine was performed without IV contrast. A dose lowering technique was utilized adhering to the principles of ALARA. FINDINGS: Bones: The bones are osteopenic. There is no evidence for an acute fracture or malalignment. The heights of the vertebral bodies are maintained. The vertebral bodies are in anatomic alignment. Disc spaces: There is moderate disc space narrowing seen throughout the thoracic spine with endplate sclerosis and osteophyte formation. Pedicles::The pedicles are intact bilaterally. Soft tissues: The paraspinal soft tissues are within normal limits. IMPRESSION: 1. Osteopenia with no acute osseous pathology. 2. Moderate disc space narrowing ACT 112: Negative or not required by law. Electronically signed by: Uri Jay M.D. 06/10/2022 1:18 PM Chest X-Ray 06/10/22 11:06 XR chest 1V portable CLINICAL HISTORY: fall, weak. Evaluate cardiopulmonary status COMPARISON STUDY: 01/10/2022 TECHNIQUE: 1 view of the chest FINDINGS: Single frontal view of the chest demonstrates the cardiomediastinal silhouette to be within normal limits. There is again asymmetric elevation of the right hemidiaphragm with crowding the bronchovascular markings at the right lung base. The lungs are clear of alveolar opacities. There is no evidence for pleural effusion. There is no evidence for vascular congestion. There is no acute oss eous pathology. IMPRESSION: 1. No acute cardiopulmonary disease. ACT 112: Negative or not required by law. Electronically signed by: Uri Jay M.D. 06/10/2022 11:[address] 06/10/22 13:56 CT chest diagnostic wo con CLINICAL HISTORY: Status post fall with back pain. History of previous lung cancer with suspicion of lung lesions. COMPARISON STUDY: CT of the chest from 04/27/2019 CT DOSE: TECHNIQUE: Standard CT of the Chest was performed without IV contrast. A dose lowering technique was utilized adhering to the principles of ALARA. FINDINGS: Airway: The airway is clear. No endobronchial lesion is identified. Lungs: Compared to the previous CT, there is again a spiculated masslike consolidation with solid and groundglass attenuation in the right suprahilar upper lobe measuring approximately 3.3 x 2.3 cm when compared to 2.8 x 2.3 cm on the previous study. A large irregular and spiculated multilobular masslike consolidation is again seen at the right lung base measuring approximately 8.1 x 5.8 cm when compared to 6.4 x 5.2 cm in the previous study. Additionally, a new pulmonary nodule is seen at the left lung base measuring 1.6 cm in greatest diameter. This is characteristic of new metastatic lung disease. No other pulmonary nodules are identified. Pleura: There is no evidence for pleural effusion. There is no evidence for pneumothorax. Mediastinum: There is no evidence for pathologic adenopathy on these limited noncontrast images. The heart size is enlarged. Coronary artery calcification is present. The thoracic aorta is within normal limits. There is no evidence for pericardial effusion. Upper abdomen: The adrenal glands are normal bilaterally. There is a small to moderate size hiatal hernia. Osseous structures: There is no acute osseous pathology. IMPRESSION: 1. Interval increase in previously identified right lower lobe lung mass. 2. No significant change in right upper lobe lung mass. 3. New left lower lobe pulmonary nodule characteristic of metastatic disease. 4. No other evidence for acute chest disease. ACT 112: Negative or not required by law. Electronically signed by: Uri Jay M.D. 06/10/2022 2:36 PM Hip/Pelvis X-Ray 06/10/22 16:21 XR hip LT 2V w pelvis CLINICAL HISTORY: severe L hip pain, s/p fall; fracture?. COMPARISON STUDY: 01/10/2022 TECHNIQUE: AP pelvis and 2 left hip views FINDINGS: Bones: The bones are osteopenic. There is no evidence for an acute fracture or dislocation. There is no lytic or blastic lesion. Joints: There is moderate narrowing of the hip joint space superiorly. The bones are in anatomic alignment. Soft tissues: There is no focal soft tissue abnormality. There is no radiopaque foreign body. IMPRESSION: 1. No acute osseous pathology. 2. Osteopenia and osteoarthritis. ACT 112: Negative or not required by law. Electronically signed by: Uri Jay M.D. 06/10/2022 5:14 PM Venous Doppler Study 06/11/22 06:58 BILATERAL LOWER EXTREMITY VENOUS DOPPLER HISTORY: Acute pain and swelling of the right lower extremity severe lymphedema ; eval DVT COMPARISON STUDY: None. FINDINGS: There is normal compressibility, flow, and augmentation within the bilateral lower extremity deep venous systems. Subcutaneous edema. IMPRESSION: No DVT within the right or left lower extremity. ACT 112: Negative or not required by law. Electronically signed by: Alirio Zuleta M.D. 06/11/2022 8:[address] 06/11/22 13:[address] DOSE: 630.31 mGy.cm HISTORY: fall; hip and pelvic pain TECHNIQUE: Multiaxial CT images of the pelvis were performed and reformatted in the sagittal and coronal plane without the use of contrast. A dose lowering technique was utilized adhering to the principles of ALARA. COMPARISON: Abdomen and pelvis CT 01/10/2022. Pelvis and left hip radiograph 05/28. FINDINGS: Suspect a subtle nondisplaced fracture at the S4 level of the distal sacrum. There is minimal presacral edema. No additional fractures identified within the pelvis or hips. Stable sclerotic focus within the left posterior iliac bone measuring 1.6 cm. This favors a bone island. Colonic diverticulosis. Minimal fat stranding at the distal descending colon which may represent a res olving or developing acute diverticulitis. This has improved compared the prior CT examination. IMPRESSION: 1. Probable subtle nondisplaced fracture at the S4 level of the distal sacrum with minimal presacral edema. 2. No additional fractures identified within the pelvis or hips. 3. Minimal fat stranding at the distal descending colon which may represent a resolving or developing acute diverticulitis. This has slightly improved in the interval. ACT 112: Negative or not required by law. Electronically signed by: Dimitrios Pena M.D. 06/11/2022 2:46 PM
--- NOTE | 2022-06-12 14:57 | Hospitalist Progress Note ---
Date of Service June 12, 2022 Assessment & Plan (1) Fall: Plan: Baseline shuffling and poor gait due to osteoarthritis per POA; CT pelvis raised the question of sacral fractureorthopedics consulted (2) Acute kidney injury: Plan: Improved, BP soft but not symptomaticobserve (3) Venous ulcer of left leg: Plan: x 2. wound care consult. in meantime - aquacel ag with optifoam. she has lymphedema at baseline - would benefit from compression. (4) Ambulatory dysfunction: Plan: PT, OT (5) Dementia with behavioral disturbance: Plan: per records she has advanced dementia; per daughter rapid decline, paranoid towards family Watch for hyperactive delirium (6) Primary mucinous adenocarcinoma of lung: Plan: Per daughter known since a couple of years or so; her cardiothoracic surgeon recommended no treatment; now it appears metastasesat present nonurgent issue; depending on goals consider outpatient oncology (7) Essential tremor: Plan: severe [place] [facility] [place] felt she did NOT have PD based on records cont primidone cont inderalno change made, as noted not symptomatic of blood pressure (8) CAD (coronary artery disease): Plan: Aspirin added; preserved LV function on echo; may have NSTEMI type I versus type IIdiscussion with POAconservative management, medical treatment; Zetia added given LDL value of 109 (ADR to atorvastatin) (9) Toxic encephalopathy: Plan: Uncertain if acute change versus progression; at present treat possible diverticulitis, reversible factors, observe (10) NSTEMI (non-ST elevated myocardial infarction): Plan: Type I versus type II; POA desires conservative measures (11) Diabetes: Plan: Sugars reasonableno change but avoid hypoglycemia (12) Diverticulitis: Plan: Uncertain significance of the finding on CT scan but question raised of developing acute diverticulitis; though no obvious clinical correlate continue Rocephin, added Flagyl (UTI has not been documented, to note) (13) Anemia: Plan: Follow at present Plan Palliative care consulted Admission and Anticipated Discharge Date Admission Date: June 11, 2022 Subjective Follow-up of presentation with fallmore awake and communicative Physical Exam Physical Exam: Constitutional and general: Confused but more awake and communicative, looks biologic age Head and face: No puffiness, atraumatic Eyes: No scleral icterus, extraocular movements normal Neck: Supple, no JVD Musculoskeletal: No acute joint swelling, no bony abnormalities Skin/dermatologic/integument: No rash, no purpura Hematologic and lymphatic: pallor +, no petechia Gastrointestinal/abdomen: Nondistended, soft, nonacute Neurologic: Cranial nerves intact, nonfocal Cardiovascular: Heart rhythm regular, no rub, soft systolic murmur, no gallop Respiratory: Chest movements equal, no use of accessory muscles, no adventitious sounds Extremities: Venous ulcer left lower extremitydressed; not seen today Results & Data Results & Data ([facility]) Vital Signs (Past 12 Hours) Vital Signs Temp Pulse Pulse Resp BP Pulse Ox O2 Del Method 06/12/22 11:07 36.4 C L 78 18 97/59 L 93 Room Air 06/12/22 08:01 73 06/12/22 06:37 36.6 C 64 18 111/63 96 Room Air 06/12/22 04:00 36.8 C 79 18 102/69 93 Room Air Laboratory Results Laboratory Results - last 24 hr 06/11/22 06/12/22 06/12/22 21:29 07:27 07:51 WBC 8.64 RBC 2.97 L Hgb 9.1 L Hct 28.1 L MCV 94.6 MCH 30.6 MCHC 32.4 RDW Std Deviation 43.1 RDW Coeff of Deirdre 12.4 Plt Count 157 MPV 10.9 Immature Gran % (Auto) 0.6 Neut % (Auto) 80.5 Lymph % (Auto) 8.8 [place] % (Auto) 9.4 Eos % (Auto) 0.5 Baso % (Auto) 0.2 Neut # (Auto) 6.96 H Lymph # (Auto) 0.76 L [place] # (Auto) 0.81 Eos # (Auto) 0.04 Baso # (Auto) 0.02 Immature Gran # (Auto) 0.05 H Sodium Potassium Chloride Carbon Dioxide Anion Gap BUN Creatinine Est Cr Clr Drug Dosing Est GFR ( Amer) Est GFR (Non-Af Amer) POC Glucose 146 H 125 H Fasting Glucose Calcium Phosphorus Magnesium Total Bilirubin AST ALT Alkaline Phosphatase Total Protein Albumin Globulin Albumin/Globulin Ratio Triglycerides Cholesterol LDL Cholesterol, Calc VLDL Cholesterol, Calc HDL Cholesterol Cholesterol/HDL Ratio 06/12/22 06/12/22 07:51 11:23 WBC RBC Hgb Hct MCV MCH MCHC RDW Std Deviation RDW Coeff of Deirdre Plt Count MPV Immature Gran % (Auto) Neut % (Auto) Lymph % (Auto) [place] % (Auto) Eos % (Auto) Baso % (Auto) Neut # (Auto) Lymph # (Auto) [place] # (Auto) Eos # (Auto) Baso # (Auto) Immature Gran # (Auto) Sodium 137 Potassium 3.7 Chloride 105 Carbon Dioxide 26 Anion Gap 6 BUN 35 H Creatinine 1.06 Est Cr Clr Drug Dosing 35.0 Est GFR ( Amer) 53.9 Est GFR (Non-Af Amer) 46.5 POC Glucose 189 H Fasting Glucose 104 H Calcium 8.4 L Phosphorus 3.1 Magnesium 2.1 Total Bilirubin 0.3 AST 72 H ALT 61 H Alkaline Phosphatase 106 H Total Protein 5.9 L D Albumin 2.8 L Globulin 3.1 Albumin/Globulin Ratio 0.9 Triglycerides 114 Cholesterol 154 LDL Cholesterol, Calc 109 VLDL Cholesterol, Calc 23 HDL Cholesterol 22 Cholesterol/HDL Ratio 7.0 H PG Care Time/CCT Total # of Minutes Spent Total Time Spent with Patient: Total time spent is greater than 50% in coordination of care (as documented) at patient's floor/unit and/or counseling patient: Coding Level of Care Code 31052 Subseq Hosp Care Lvl 2 Diagnoses Fall W19.XXXA Encounter type: initial encounter Acute kidney injury N17.9 Venous ulcer of left leg I83.029; L97.929 Ambulatory dysfunction R26.2 Dementia with behavioral disturbance F03.91 Dementia type: unspecified type Primary mucinous adenocarcinoma of lung C34.90 Essential tremor G25.0 CAD (coronary artery disease) I25.10 Toxic encephalopathy G92.9 NSTEMI (non-ST elevated myocardial infarction) I21.4 Diabetes E11.9 Diverticulitis K57.92 Anemia D64.9 (1) Fall Encounter type: initial encounter Qualified Code(s): W19.XXXA - Unspecified fall, initial encounter (2) Dementia with behavioral disturbance Dementia type: unspecified type Qualified Code(s): F03.91 - Unspecified dementia with behavioral disturbance
[2022-06-12] MEDS: cefTRIAXone SODIUM 2,000 MG in DEXTROSE 5% 50 ML IV SCH (17:38)
[2022-06-12] MEDS: INSULIN DETEMIR FLEXPEN/FLEX TOUCH 100 UNITS/ML 3ML SQ SCH (20:42)
[2022-06-12] MEDS: PRIMIDONE 50 MG TAB PO SCH (20:44)
[2022-06-13] MEDS: metroNIDAZOLE 500 MG TAB PO SCH ×3 (07:47→20:56)
[2022-06-13] MEDS: CHOLECALCIFEROL 5,000 UNITS 125 MCG TAB PO SCH (07:47)
[2022-06-13] MEDS: PROPRANOLOL HCL 60 MG LA CAP PO SCH (07:47)
[2022-06-13] MEDS: EZETIMIBE 10 MG TABLET PO SCH (07:48)
[2022-06-13] MEDS: HEPARIN SOD 5,000 UNIT/0.5 ML VIAL SQ SCH ×3 (07:48→23:46)
[2022-06-13] MEDS: ASPIRIN 81 MG ECTAB PO SCH (07:48)
[2022-06-13] MEDS: ASCORBIC ACID 500 MG TAB PO SCH (07:48)
[2022-06-13] MEDS: POLYETHYLENE (MIRALAX) 17 GM PACK PO SCH (07:48)
[2022-06-13 08:02] LABS: Basophils # (auto) 0.01 K/uL (0-0.2); Basophils % (auto) 0.1 %; Eosinophils # (auto) 0.13 K/uL (0-0.50); Eosinophils % (auto) 1.7 %; Hematocrit (blood only) 27.3 % (34.1-44.9); Hemoglobin 8.9 g/dl (12.0-16.0); Immature Granulocytes # (auto) 0.11 K/uL (0.00-0.02); Immature Granulocytes % (auto) 1.4 %; Lymphocytes # (auto) 0.89 K/uL (1.2-3.4); Lymphocytes % (auto) 11.4 %; Mean Corpuscular Hemoglobin 30.9 pg (25.0-34.0); Mean Corpuscular Hgb Conc 32.6 g/dL (32.0-36.0); Mean Corpuscular Volume 94.8 fL (80.0-100.0); Mean Platelet Volume 10.8 fL (9.4-12.3); Monocytes % (auto) 10.2 %; Neutrophils % (auto) 75.2 %; Platelet Count 178 K/uL (130-400); RDW Coefficient of Variation 12.2 % (11.5-14.5); Red Blood Count 2.88 M/uL (3.93-5.22); White Blood Count 7.84 K/ul (4.8-10.8)
[2022-06-13] MEDS: INSULIN ASPART PER UNIT SC SCH ×4 (08:06→20:25)
[2022-06-13 08:42] LABS: Albumin Globulin Ratio 0.9 (0.9-2); Albumin Level 2.7 gm/dl (3.4-5.0); Bilirubin,Total 0.3 mg/dl (0.2-1.0); Calcium 8.2 mg/dl (8.5-10.1); Creatinine Clr Calc Pharmacy 42.8 ml/min; Est GFR (African American) 68.5 ml/min; Est GFR (Non-African American) 59.1 ml/min; Globulin 2.9 gm/dl (2.5-4.0); Potassium 3.8 mmol/L (3.5-5.1); Total Protein 5.6 gm/dl (6.0-8.3)
--- NOTE | 2022-06-13 12:47 | Ultrasound Report ---
US abdomen limited HISTORY: 89 years-old Female Abnormal liver enzymes-right upper quadrant elevated LFTs COMPARISON: CT pelvis 06/11/2022, CT abdomen and pelvis 01/10/2022, chest CT 06/10/2022 TECHNIQUE: Multiple real-time sonographic images of the abdominal right upper quadrant were obtained assessing grayscale appearance and color flow FINDINGS: Numerous hypoechoic heterogeneous lesions are scattered throughout the liver measuring up to 3.4 cm. 2 echogenic foci of the right hepatic lobe suggestive of hemangiomata measure up to approximately 1.2 cm. Contracted gallbladder. Normal common bile duct, 6 mm. The imaged right kidney is unremarkable w ithout hydronephrosis. Small right pleural effusion. IMPRESSION: 1. 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 2. Contracted gallbladder. 3. No biliary ductal dilation. ACT 112: Negative or not required by law. The above report was generated using voice recognition software. It may contain grammatical, syntax o r spelling errors. Electronically signed by: Alirio Zuleta M.D. 06/13/2022 12:46 PM
--- NOTE | 2022-06-13 13:40 | Hospitalist Progress Note ---
Date of Service June 13, 2022 Assessment & Plan (1) Fall: Plan: Baseline shuffling and poor gait due to osteoarthritis per POA; CT pelvis raised the question of sacral fracture (present on admission)orthopedics input appreciated (2) Venous ulcer of left leg: Plan: x 2. wound care consult. in meantime - aquacel ag with optifoam. she has lymphedema at baseline - would benefit from compression. (3) Ambulatory dysfunction: Plan: PT, OT (4) Dementia with behavioral disturbance: Plan: per records she has advanced dementia; per daughter rapid decline, paranoid towards family Watch for hyperactive delirium (5) Primary mucinous adenocarcinoma of lung: Plan: Per daughter known since a couple of years or so; her cardiothoracic surgeon recommended no treatment; now it appears metastasesat present nonurgent issue; depending on goals consider outpatient oncology (6) Essential tremor: Plan: severe [place] [facility] [place] felt she did NOT have PD based on records cont primidone cont inderalno change made, as noted not symptomatic of blood pressure (7) CAD (coronary artery disease): Plan: Aspirin added; preserved LV function on echo; may have NSTEMI type I versus type II (present on admission); difficult to discern symptoms)discussion with POAconservative management, medical treatment; Zetia added given LDL value of 109 (ADR to atorvastatin) (8) Toxic encephalopathy: Plan: Uncertain if acute change versus progression; at present treat possible diverticulitis noted on CT scan (present on admission), reversible factors, observe (9) NSTEMI (non-ST elevated myocardial infarction): Plan: Type I versus type IIpresent on admission; POA desires conservative measures (10) Diabetes: Plan: Sugars reasonableno change but avoid hypoglycemia (11) Diverticulitis: Plan: Present on admission; uncertain significance of the finding on CT scan but question raised of developing acute diverticulitis; though no obvious clinical correlate continue Rocephin, added Flagyl (UTI has not been documented, to note) (12) Anemia: Plan: Follow at presentnoted slightly lower hemoglobin (13) Abnormal liver enzymes: Plan: Not present on admission; ultrasound shows multiple metastases (14) Sacral fracture: Plan: Probable; if present, present on admission; orthopedics input notedconservative management Plan Noted new mild hyponatremia -not present on admissionobserve; Palliative care consult noted and appreciated Admission and Anticipated Discharge Date Admission Date: June 11, 2022 Subjective Follow-up of presentation with fallno specific complaints; cognitive deficit o bvious Physical Exam Physical Exam: Constitutional and general: No acute distress, looks biologic age Head and face: No puffiness, atraumatic Eyes: No scleral icterus, extraocular movements normal Neck: Supple, no JVD Musculoskeletal: No acute joint swelling, no bony abnormalities Skin/dermatologic/integument: No rash, no purpura Hematologic and lymphatic: pallor +, no petechia Gastrointestinal/abdomen: Nondistended, soft, nonacute Neurologic: Cranial nerves intact, nonfocal Cognitive deficit apparent Cardiovascular: Heart rhythm regular, no rub, no murmur, no gallop Respiratory: Chest movements equal, no use of accessory muscles, no adventitious sounds Extremities: Venous self-addressed left lower extremity; chronic lymphedema-like changes Results & Data Results & Data ([facility]) Vital Signs (Past 12 Hours) Vital Signs Temp Pulse Pulse Resp BP Pulse Ox O2 Del Method 06/13/22 11:07 36.8 C 70 18 113/67 94 Room Air 06/13/22 08:28 36.2 C L 69 16 114/65 95 Room Air 06/13/22 07:19 68 06/13/22 04:17 37.1 C 71 17 112/66 93 Room Air Laboratory Results Laboratory Results - last 24 hr 06/12/22 06/12/22 06/13/22 16:24 20:23 07:24 WBC RBC Hgb Hct MCV MCH MCHC RDW Std Deviation RDW Coeff of Deirdre Plt Count MPV Immature Gran % (Auto) Neut % (Auto) Lymph % (Auto) [place] % (Auto) Eos % (Auto) Baso % (Auto) Neut # (Auto) Lymph # (Auto) [place] # (Auto) Eos # (Auto) Baso # (Auto) Immature Gran # (Auto) Sodium Potassium Chloride Carbon Dioxide Anion Gap BUN Creatinine Est Cr Clr Drug Dosing Est GFR ( Amer) Est GFR (Non-Af Amer) POC Glucose 145 H 179 H 116 H Fasting Glucose Calcium Phosphorus Magnesium Total Bilirubin AST ALT Alkaline Phosphatase Total Protein Albumin Globulin Albumin/Globulin Ratio 06/13/22 06/13/22 06/13/22 07:38 07:38 12:22 WBC 7.84 RBC 2.88 L Hgb 8.9 L Hct 27.3 L MCV 94.8 MCH 30.9 MCHC 32.6 RDW Std Deviation 43.0 RDW Coeff of Deirdre 12.2 Plt Count 178 MPV 10.8 Immature Gran % (Auto) 1.4 Neut % (Auto) 75.2 Lymph % (Auto) 11.4 [place] % (Auto) 10.2 Eos % (Auto) 1.7 Baso % (Auto) 0.1 Neut # (Auto) 5.90 Lymph # (Auto) 0.89 L [place] # (Auto) 0.80 Eos # (Auto) 0.13 Baso # (Auto) 0.01 Immature Gran # (Auto) 0.11 H Sodium 132 L Potassium 3.8 Chloride 103 Carbon Dioxide 22 Anion Gap 7 BUN 30 H Creatinine 0.87 Est Cr Clr Drug Dosing 42.8 Est GFR ( Amer) 68.5 Est GFR (Non-Af Amer) 59.1 POC Glucose 178 H Fasting Glucose 98 Calcium 8.2 L Phosphorus 3.0 Magnesium 2.0 Total Bilirubin 0.3 AST 59 H ALT 64 H Alkaline Phosphatase 111 H Total Protein 5.6 L Albumin 2.7 L Globulin 2.9 Albumin/Globulin Ratio 0.9 PG Care Time/CCT Total # of Minutes Spent Total Time Spent with Patient: Total time spent is greater than 50% in coordination of care (as documented) at patient's floor/unit and/or counseling patient: Coding Level of Care Code 90369 Subseq Hosp Care Lvl 2 Diagnoses Fall W19.XXXA Encounter type: initial encounter Venous ulcer of left leg I83.029; L97.929 Ambulatory dysfunction R26.2 Dementia with behavioral disturbance F03.91 Dementia type: unspecified type Primary mucinous adenocarcinoma of lung C34.90 Essential tremor G25.0 CAD (coronary artery disease) I25.10 Toxic encephalopathy G92.9 NSTEMI (non-ST elevated myocardial infarction) I21.4 Diabetes E11.9 Diverticulitis K57.92 Anemia D64.9 Abnormal liver enzymes R74.8 Sacral fracture S32.10XA (1) Fall Encounter type: initial encounter Qualified Code(s): W19.XXXA - Unspecified fall, initial encounter (2) Dementia with behavioral disturbance Dementia type: unspecified type Qualified Code(s): F03.91 - Unspecified demen tia with behavioral disturbance
[2022-06-13] MEDS: cefTRIAXone SODIUM 2,000 MG in DEXTROSE 5% 50 ML IV SCH (16:01)
[2022-06-13] MEDS: oxyCODONE HCL IR 5 MG TAB (IMMEDIATE RELEASE) PO PRN (20:57)
[2022-06-13] MEDS: INSULIN DETEMIR FLEXPEN/FLEX TOUCH 100 UNITS/ML 3ML SQ SCH (20:57)
[2022-06-13] MEDS: PRIMIDONE 50 MG TAB PO SCH (20:57)
[2022-06-14 06:57] LABS: Basophils # (auto) 0.02 K/uL (0-0.2); Basophils % (auto) 0.3 %; Eosinophils # (auto) 0.18 K/uL (0-0.50); Eosinophils % (auto) 2.4 %; Hematocrit (blood only) 29.7 % (34.1-44.9); Hemoglobin 9.7 g/dl (12.0-16.0); Immature Granulocytes # (auto) 0.11 K/uL (0.00-0.02); Immature Granulocytes % (auto) 1.5 %; Lymphocytes # (auto) 0.82 K/uL (1.2-3.4); Mean Corpuscular Hemoglobin 31.3 pg (25.0-34.0); Mean Corpuscular Hgb Conc 32.7 g/dL (32.0-36.0); Mean Corpuscular Volume 95.8 fL (80.0-100.0); Mean Platelet Volume 10.5 fL (9.4-12.3); Monocytes # (auto) 0.88 K/uL (0.24-0.82); Monocytes % (auto) 11.8 %; Neutrophils # (auto) 5.43 K/uL (1.4-6.5); Platelet Count 215 K/uL (130-400); RDW Coefficient of Variation 12.3 % (11.5-14.5); RDW Standard Deviation 42.9 fL (36.4-46.3); White Blood Count 7.44 K/ul (4.8-10.8)
[2022-06-14 07:23] LABS: Albumin Level 2.7 gm/dl (3.4-5.0); Bilirubin,Total 0.3 mg/dl (0.2-1.0); Calcium 8.3 mg/dl (8.5-10.1); Creatinine Clr Calc Pharmacy 46.9 ml/min; Est GFR (African American) 75.8 ml/min; Est GFR (Non-African American) 65.4 ml/min; Globulin 2.8 gm/dl (2.5-4.0); Phosphorus 3.4 mg/dl (2.5-4.9); Potassium 3.8 mmol/L (3.5-5.1); Total Protein 5.5 gm/dl (6.0-8.3)
[2022-06-14] MEDS: ASPIRIN 81 MG ECTAB PO SCH (08:09)
[2022-06-14] MEDS: PROPRANOLOL HCL 60 MG LA CAP PO SCH (08:09)
[2022-06-14] MEDS: CHOLECALCIFEROL 5,000 UNITS 125 MCG TAB PO SCH (08:09)
[2022-06-14] MEDS: metroNIDAZOLE 500 MG TAB PO SCH ×3 (08:09→22:13)
[2022-06-14] MEDS: EZETIMIBE 10 MG TABLET PO SCH (08:09)
[2022-06-14] MEDS: ASCORBIC ACID 500 MG TAB PO SCH (08:09)
[2022-06-14] MEDS: HEPARIN SOD 5,000 UNIT/0.5 ML VIAL SQ SCH ×3 (08:10→23:49)
[2022-06-14] MEDS: POLYETHYLENE (MIRALAX) 17 GM PACK PO SCH (08:10)
[2022-06-14] MEDS: INSULIN ASPART PER UNIT SC SCH ×4 (09:23→22:18)
[2022-06-14] MEDS: ACETAMINOPHEN 500 MG TAB PO SCH ×2 (15:11→22:13)
--- NOTE | 2022-06-14 15:27 | Hospitalist Progress Note ---
Date of Service June 14, 2022 Assessment & Plan (1) Fall: Plan: Baseline shuffling and poor gait due to osteoarthritis per POA; CT pelvis raised the question of sacral fracture (present on admission)orthopedics input appreciated; conservative management (2) Venous ulcer of left leg: Plan: x 2.Present on admission wound care consult. in meantime - aquacel ag with optifoam. she has lymphedema at baseline - would benefit from compression. (3) Ambulatory dysfunction: Plan: PT, OT (4) Dementia with behavioral disturbance: Plan: per records she has advanced dementia; per daughter rapid decline, paranoid towards family Watch for hyperactive delirium (5) Primary mucinous adenocarcinoma of lung: Plan: Per daughter known since a couple of years or so; her cardiothoracic surgeon recommended no treatment; now it appears metastasesat present nonurgent issue; depending on goals consider outpatient oncology (6) Essential tremor: Plan: severe previously [place] [facility] [place] felt she did NOT have PD based on records cont primidone cont inderalno change made, as noted not symptomatic of blood pressure (7) CAD (coronary artery disease): Plan: Aspirin added; preserved LV function on echo; may have NSTEMI type I versus type II (present on admission); difficult to discern symptoms)discussion with POAconservative management, medical treatment; Zetia added given LDL value of 109 (ADR to atorvastatin) (8) Toxic encephalopathy: Plan: Uncertain if acute change versus progression; at present treat possible diverticulitis noted on CT scan (present on admission), reversible factors, observe (9) NSTEMI (non-ST elevated myocardial infarction): Plan: Type I versus type IIpresent on admission; POA desires conservative measures (10) Diabetes: Plan: Sugars reasonableno change but avoid hypoglycemia (11) Diverticulitis: Plan: Present on admission; uncertain significance of the finding on CT scan but question raised of developing acute diverticulitis; though no obvious clinical correlate continue Rocephin, added Flagyl (UTI has not been documented, to note) (12) Anemia: Plan: Follow at presentstable to better (13) Abnormal liver enzymes: Plan: Not present on admission; ultrasound shows multiple metastases; they do not desire chemo or radiation (14) Sacral fracture: Plan: Probable; if present, present on admission; orthopedics input notedconservative management Plan Noted new mild hyponatremia -not present on admissionobserve; Palliative care consult noted and appreciated; Placement pending Admission and Anticipated Discharge Date Admission Date: June 11, 2022 Subjective Follow-up of presentation with fallno specific complaints; cognitive deficit obvious Physical Exam Physical Exam: Constitutional and general: No acute distress, looks biologic age Head and face: No puffiness, atraumatic Eyes: No scleral icterus, extraocular movements normal Neck: Supple, no JVD Musculoskeletal: No acute joint swelling, no bony abnormalities Skin/dermatologic/integument: No rash, no purpura Hematologic and lymphatic: pallor +, no petechia Gastrointestinal/abdomen: Nondistended, soft, nonacute Neurologic: Cranial nerves intact, nonfocal Cognitive deficit apparent Cardiovascular: Heart rhythm regular, no rub, no murmur, no gallop Respiratory: Chest movements equal, no use of accessory muscles, no adventitious sounds Extremities: Venous self-addressed left lower extremity; chronic lymphedema-like changes Results & Data Results & Data ([facility]) Vital Signs (Past 12 Hours) Vital Signs Temp Pulse Pulse Resp BP Pulse Ox O2 Del Method 06/14/22 11:45 36.8 C 71 18 110/67 95 Room Air 06/14/22 09:06 Room Air 06/14/22 09:03 67 06/14/22 07:45 37.0 C 71 18 117/71 95 Room Air 06/14/22 03:43 37.0 C 66 18 125/74 94 Room Air Laboratory Results Laboratory Results - last 24 hr 06/13/22 06/13/22 06/14/22 16:21 20:20 06:32 WBC 7.44 RBC 3.10 L Hgb 9.7 L Hct 29.7 L MCV 95.8 MCH 31.3 MCHC 32.7 RDW Std Deviation 42.9 RDW Coeff of Deirdre 12.3 Plt Count 215 MPV 10.5 Immature Gran % (Auto) 1.5 Neut % (Auto) 73.0 Lymph % (Auto) 11.0 [place] % (Auto) 11.8 Eos % (Auto) 2.4 Baso % (Auto) 0.3 Neut # (Auto) 5.43 Lymph # (Auto) 0.82 L [place] # (Auto) 0.88 H Eos # (Auto) 0.18 Baso # (Auto) 0.02 Immature Gran # (Auto) 0.11 H Sodium Potassium Chloride Carbon Dioxide Anion Gap BUN Creatinine Est Cr Clr Drug Dosing Est GFR ( Amer) Est GFR (Non-Af Amer) POC Glucose 94 158 H Fasting Glucose Calcium Phosphorus Magnesium Total Bilirubin AST ALT Alkaline Phosphatase Total Protein Albumin Globulin Albumin/Globulin Ratio 06/14/22 06/14/22 06/14/22 06:32 07:37 11:56 WBC RBC Hgb Hct MCV MCH MCHC RDW Std Deviation RDW Coeff of Deirdre Plt Count MPV Immature Gran % (Auto) Neut % (Auto) Lymph % (Auto) [place] % (Auto) Eos % (Auto) Baso % (Auto) Neut # (Auto) Lymph # (Auto) [place] # (Auto) Eos # (Auto) Baso # (Auto) Immature Gran # (Auto) Sodium 133 L Potassium 3.8 Chloride 103 Carbon Dioxide 23 Anion Gap 7 BUN 25 H Creatinine 0.80 Est Cr Clr Drug Dosing 46.9 Est GFR ( Amer) 75.8 Est GFR (Non-Af Amer) 65.4 POC Glucose 92 142 H Fasting Glucose 84 Calcium 8.3 L Phosphorus 3.4 Magnesium 2.0 Total Bilirubin 0.3 AST 33 ALT 45 Alkaline Phosphatase 101 Total Protein 5.5 L Albumin 2.7 L Globulin 2.8 Albumin/Globulin Ratio 1.0 PG Care Time/CCT Total # of Minutes Spent Total Time Spent with Patient: Total time spent is greater than 50% in coordination of care (as documented) at patient's floor/unit and/or counseling patient: Coding Level of Care Code 36136 Subseq Hosp Care Lvl 2 Diagnoses Fall W19.XXXA Encounter type: initial encounter Venous ulcer of left leg I83.029; L97.929 Ambulatory dysfunction R26.2 Dementia with behavioral disturbance F03.91 Dementia type: unspecified type Primary mucinous adenocarcinoma of lung C34.90 Essential tremor G25.0 CAD (coronary artery disease) I25.10 Toxic encephalopathy G92.9 NSTEMI (non-ST elevated myocardial infarction) I21.4 Diabetes E11.9 Diverticulitis K57.92 Anemia D64.9 Abnormal liver enzymes R74.8 Sacral fracture S32.10XA (1) Fall Encounter type: initial encounter Qualified Code(s): W19.XXXA - Unspecified fall, initial encounter (2) Dementia with behavioral disturbance Dementia type: unspecified type Qualified Code(s): F03.91 - Unspecified dementia with behavioral disturbance
[2022-06-14] MEDS: cefTRIAXone SODIUM 2,000 MG in DEXTROSE 5% 50 ML IV SCH (18:10)
[2022-06-14] MEDS: PRIMIDONE 50 MG TAB PO SCH (22:13)
[2022-06-14] MEDS: INSULIN DETEMIR FLEXPEN/FLEX TOUCH 100 UNITS/ML 3ML SQ SCH (22:14)
[2022-06-15] MEDS: ACETAMINOPHEN 500 MG TAB PO SCH ×2 (06:00→08:41)
[2022-06-15] MEDS: POLYETHYLENE (MIRALAX) 17 GM PACK PO SCH (08:37)
[2022-06-15] MEDS: metroNIDAZOLE 500 MG TAB PO SCH (08:42)
[2022-06-15] MEDS: CHOLECALCIFEROL 5,000 UNITS 125 MCG TAB PO SCH (08:42)
[2022-06-15] MEDS: EZETIMIBE 10 MG TABLET PO SCH (08:43)
[2022-06-15] MEDS: PROPRANOLOL HCL 60 MG LA CAP PO SCH (08:43)
[2022-06-15] MEDS: ASCORBIC ACID 500 MG TAB PO SCH (08:43)
[2022-06-15] MEDS: ASPIRIN 81 MG ECTAB PO SCH (08:43)
[2022-06-15] MEDS: HEPARIN SOD 5,000 UNIT/0.5 ML VIAL SQ SCH (08:43)
[2022-06-15] MEDS: INSULIN ASPART PER UNIT SC SCH ×2 (08:46→12:40)
[2022-06-15] MEDS: oxyCODONE HCL IR 5 MG TAB (IMMEDIATE RELEASE) PO PRN (09:34)
--- NOTE | 2022-06-15 11:24 | Discharge Summary ---
Date of Service June 15, 2022 Admission HPI Per Admitting Provider 89yo female with a history of dementia, essential tremor, CAD, lymphedema of b/l legs, and T2DM who presented to [facility] after having had a fall at her home. The patient was very confused during the visit, stating it was 1981 and telling me that she lives with her (she lives alone by report). Due to her confusion I was unable to obtain any meaningful history or ROS. Further, I was unable to contact the patient's daughter for additional information via phone. Thus, all information was obtained from reading the patient's chart and speaking with the ER attending. By report the patient was at home in her bathroom and attempting to get up from the toilet. She lost her balance and fell to the ground. ?struck her head. It is unknown if she had any loss of consciousness. Additionally, the ER attending spoke with the patient's daughter earlier today and did confirm her mother has dementia. Due to the dementia and other factors the patient's daughter has taken control of the patient's finances. Her daughter has encouraged her to move to an assisted living facility but the patient has resisted such. Principal Diagnosis Progressive dementia, metastatic lung cancer Discharge Exam No acute distress Abdomen benign No change from prior exam Vital Signs Temp Pulse Pulse Resp BP BP Pulse Ox 06/15/22 10:56 36.9 C 67 18 104/61 92 06/15/22 08:00 06/15/22 08:50 37.2 C 68 18 116/71 95 06/15/22 07:28 62 06/15/22 04:00 36.6 C 61 18 128/77 97 06/15/22 00:00 36.5 C 56 L 18 111/61 97 06/14/22 23:03 55 L 06/14/22 18:28 36.8 C 55 L 18 105/65 96 06/14/22 16:00 36.9 C 57 L 18 92/49 L 96 06/14/22 15:34 62 06/14/22 11:45 36.8 C 71 18 110/67 95 O2 Del Method 06/15/22 10:56 Room Air 06/15/22 08:00 Room Air 06/15/22 08:50 Room Air 06/15/22 07:28 06/15/22 04:00 Room Air 06/15/22 00:00 Room Air 06/14/22 23:03 06/14/22 18:28 Room Air 06/14/22 16:00 06/14/22 15:34 06/14/22 11:45 Room Air Intake and Output 06/14/22 06/15/22 06/15/22 22:59 06:59 14:59 Intake Total 270 / 690 120 / 690 Output Total 0 / 400 400 / 400 Balance 270 / 290 -280 / 290 Intake: IV 70 / 70 cefTRIAXone SODIUM 2,000 mg In 70 / 70 Dextrose 5% 50 ml @ 100 mls/hr IV Q24H [facility] Rx#:[id number] Oral 200 / 620 120 / 620 Output: Urine 0 / 0 Urine Amount (Catheter) 0 / 400 400 / 400 External 0 / 400 400 / 400 Other: Weight 78 kg Weight Measurement Method Built in [facility] Discharge Data Allergies Allergy/AdvReac Type Severity Reaction Status Date / Time carbidopa Allergy Unknown "GO CRAZY" Verified 04/23/22 13:08 latex Allergy Unknown ITCHY/RASH Verified 04/23/22 13:08 levodopa Allergy Unknown "GO CRAZY" Verified 04/23/22 13:08 Penicillins Allergy Unknown PT NOT SURE Verified 04/23/22 13:08 amlodipine [From Caduet] AdvReac Unknown Verified 04/23/22 13:08 atorvastatin [From Lipitor] AdvReac Unknown Verified 04/23/22 13:08 doxycycline AdvReac Unknown Verified 04/23/22 13:08 lisinopril AdvReac Unknown Verified 04/23/22 13:08 losartan AdvReac Unknown Verified 04/23/22 13:08 meclizine AdvReac Unknown Verified 04/23/22 13:08 morphine AdvReac Unknown ITCHINESS Verified 04/23/22 13:08 pramipexole [From Mirapex] AdvReac Unknown Verified 04/23/22 13:08 topiramate [From Topamax] AdvReac Unknown Verified 04/23/22 13:08 Consultations 06/10/22 14:27 ED Decision to Admit Stat 06/11/22 13:31 Consult Palliative Care Routine 06/11/22 16:34 Consult Orthopedic Surgery Routine Ordered Studies 06/10/22 11:05 CT cervical spine wo con Stat CT head/brain wo con Stat CT lumbar spine wo con Stat CT thoracic spine wo con Stat 06/10/22 13:56 CT chest diagnostic wo con Stat 06/11/22 06:58 US venous doppler LE BI Routine 06/11/22 13:15 CT pelvis wo con Urgent 06/13/22 11:30 US abdomen limited Urgent Hospital Course (1) Fall: Baseline shuffling and poor gait due to osteoarthritis per POA; CT pelvis raised the question of sacral fracture (present on admission); conservative management (2) Venous ulcer of left leg: Wound care dressing instructions; if desired and nonhealing can refer to wound clinic (3) Ambulatory dysfunction: PT, OT (4) Dementia with behavioral disturbance: Progressive per daughter; at present no evidence of hyperactive delirium, supportive care at present (5) 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 liver metsthey do not desire chemotherapy or radiation (6) Essential tremor: Home therapy (7) CAD (coronary artery disease): Aspirin added; preserved LV function on echo; may have NSTEMI type I versus type II (present on admission); difficult to discern symptoms)discussion with POAconservative management, medical treatment; Zetia added given LDL value of 109 (ADR to atorvastatin) (8) NSTEMI (non-ST elevated myocardial infarction): Type I versus type IIpresent on admission; POA desires conservative measuresadded Zetia and aspirin (9) Diabetes: Continue home therapy (10) Diverticulitis: Not confirmed; received short course of antibiotics but would qualify for outpatient treatmentno further antibiotics They do not desire proceduresnot referred to GI (11) Anemia: Follow at presentstable to better (12) Sacral fracture: Probable; if present, present on admission; conservative management Plan Depending on goals follow BMP, magnesium, CBC once a week every Saturday Total Time Total Time Spent Total Time Spent (In Minutes): 32 Discharge Plan Discharge Items Patient Disposition: Transfer Jail Fac Reason For Visit: FALL,LUNG CANCER Discharge Diagnosis: Progressive dementia, metastatic lung cancer Activity: As commented below Activity Comment: as tolerated Non-emergency contact: Primary Care Provider Call non-emergency contact if: your symptoms worsen Follow-up/Referrals: Olive Martinez MD [Physician] - (Seen by you, metastatic lung cancer) Will Qureshi DO [Primary Care Provider] - Diet: Carb Consistent or DM2 Diet Texture: Easy to Chew Addtl Attending Provider Instructions: Dressing to left soler left shinAquacel Ag, optifoam change every other day beginning 06/16 and as needed; if does not heal in 1 to 2 weeks follow-up in wound clinic CBC, BMP, magnesium once a week every Saturday Pending Studies at Discharge: No Stand-Alone Forms: My [facility] Skilled Items Patient informed of condition?: Yes DNR: Yes Discharge Level of Care: Skilled Communicable Disease: No Discharge Prognosis: Stable Lines: None Urinary Catheter: No Medications and DC Order Prescriptions: New bisacodyl 10 mg Suppository 10 mg CO DAILY PRN (Reason: constipation) Qty: 50 0RF acetaminophen [Tylenol Extra Strength] 500 mg Tablet 1,000 mg PO Q8 Qty: 30 0RF ezetimibe 10 mg Tablet 10 mg PO QAM Qty: 30 0RF aspirin 81 mg Tablet,Delayed Release (Dr/Ec) 81 mg PO DAILY Qty: 30 0RF tramadol 50 mg Tablet 50 mg PO Q6 PRN (Reason: moderate pain (scale score 5-6)) Qty: 20 0RF oxycodone 5 mg Tablet 5 mg PO Q4 PRN (Reason: severe pain (scale score 7-10)) Qty: 20 0RF Continued (DME) pen needle, diabetic [BD Ultra-Fine Samia Pen Needle] 32 gauge x 5/32" needle See Rx Instructions .ROUTE .MEDSUPPLY Qty: 100 1RF Rx Instructions: use once a day furosemide 40 mg tablet 80 mg PO QAM Qty: 180 1RF (DME) OneTouch Verio test strips Strip See Rx Instructions .Route Qty: 100 3RF Rx Instructions: As directed (DME) blood-glucose meter [OneTouch Verio Meter] Misc See Rx Instructions .Route Qty: 1 0RF Rx Instructions: As directed (DME) lancets [OneTouch Delica Lancets] 30 gauge misc See Rx Instructions .Route Qty: 200 3RF Rx Instructions: As directed propranolol 60 mg capsule,extended release 24 hr 60 mg PO QAM Qty: 90 1RF primidone 50 mg tablet See Rx Instructions .ROUTE .COMPLEX Rx Instructions: TAKE 2 TABLETS (100 MG) EVERY MORNING AND 3 TABLETS (150 MG) AT BEDTIME per pt takes 4 at bedtime as of 04/23/2022 Levemir FlexTouch U-100 Insuln 100 unit/mL (3 mL) insulin pen 10 unit SQ HS Qty: 3 0RF fluticasone propionate [Flonase Allergy Relief] 50 mcg/actuation spray,suspension 1 spray intranasal BID PRN (Reason: nasal congestion) Qty: 16 2RF Rx Instructions: administer into each nostril diphenoxylate-atropine [Lomotil] 2.5-0.025 mg tablet 1 tab PO BID PRN (Reason: diarrhea) Qty: 30 0RF Rx Instructions: please mail to pt cod liver oil Capsule 2 cap PO DAILY PRN turmeric 400 mg capsule 800 mg PO DAILY PRN ascorbic acid (vitamin C) 500 mg tablet 500 mg PO DAILY cholecalciferol (vitamin D3) [Vitamin D3] 125 mcg (5,000 unit) tablet 5,000 units PO QAM loratadine 10 mg tablet 10 mg PO QAM PRN (Reason: Allergy Symptoms) diphenhydramine-acetaminophen [Tylenol PM Extra Strength] 25-500 mg tablet 4 tab PO HS Discharge Orders: Discharge Order (Routine); Ordered 06/15/22 Ordered By: Joe Low Admission Data Admit Date/Time: 06/11/22 13:20 Attending Provider: Joe Low Admit Provider: Frederick Holt Primary Care Provider: Will Qureshi Other Providers: Frederick Holt ; Olive Martinez ; [facility] ; Vadim Jha Coding Level of Care Code D/C DAY MANAGEMENT >30 MINS Diagnoses Fall W19.XXXA Encounter type: initial encounter Venous ulcer of left leg I83.029; L97.929 Ambulatory dysfunction R26.2 Dementia with behavioral disturbance F03.91 Dementia type: unspecified type Primary mucinous adenocarcinoma of lung C34.90 Essential tremor G25.0 CAD (coronary artery disease) I25.10 NSTEMI (non-ST elevated myocardial infarction) I21.4 Diabetes E11.9 Diverticulitis K57.92 Anemia D64.9 Sacral fracture S32.10XA
[2022-06-15] MEDS ORDERED: LIDOCAINE 5% 1 PATCH TD SCH (12:00)
--- NOTE | 2022-06-15 13:37 | Palliative Care Progress Note ---
Date of Service June 15, 2022 Assessment & Plan (1) Back pain: Plan: On routine tylenol with lidocaine patch. Oxycodone available as needed. Discussed with daughter, Melissa. She would prefer to maximize nonopioid interventions if possible, due to increased confusion with opioids. (2) Palliative care encounter: Plan: Plan is for Molly to be transferred to [facility] today. I reviewed our previous goals of care discussion with Melissa over the phone. She confirms DNR,DNI, comfort measures as focus, avoid return to hospital. I completed a POLST per our conversation which she will sign at [place]. She would be in favor of antibiotics depending on the situation and says that Molly did mention wanting to have hydration but no artificial feeding in her living will. POLST completed according to her wishes. Copy made for chart. Admission and Anticipated Discharge Date Admission Date: June 11, 2022 Subjective Resting comfortably in bed. Had prn oxycodone earlier this morning for pain. Molly says that she didn't feel good this morning but can't remember exactly what was going on. Denies pain at this time. Review of Systems Review of Systems: Unobtainable due to cognitive status ESAS PainAD 0/3 Dyspnea by observation 0/3 PPS 40 Physical Exam Constitutional: no acute distress Respiratory: normal respiratory effort; no labored breathing Gastrointestinal (Abdomen): LBM 06/15, incontinent Neurologic: Speech / Cognition: + abnormal cognition Results & Data ([facility]) Vital Signs (Past 12 Hours) Vital Signs Temp Pulse Pulse Pulse Resp BP BP 06/15/22 12:22 98.4 F 68 67 18 105/65 104/61 06/15/22 10:56 98.4 F 67 18 104/61 06/15/22 08:00 06/15/22 08:50 99.0 F 68 18 116/71 06/15/22 07:28 62 06/15/22 04:00 97.9 F 61 18 128/77 Pulse Ox O2 Del Method 06/15/22 12:22 92 06/15/22 10:56 92 Room Air 06/15/22 08:00 Room Air 06/15/22 08:50 95 Room Air 06/15/22 07:28 06/15/22 04:00 97 Room Air PG Care Time/CCT Total # of Minutes Spent Total Time Spent: 25 Total Time Spent with Patient: Total time spent is greater than 50% in coordination of care (as documented) at patient's floor/unit and/or counseling patient: symptom management, goals of care, POLST Coding Level of Care Code 53467 Subseq Hosp Care Lvl 2 Diagnoses Back pain M54.9 Back pain laterality: midline Back pain location: back pain in unspecified location Chronicity: acute Palliative care encounter Z51.5 (1) Back pain Back pain laterality: midline Back pain location: back pain in unspecified location Chronicity: acute Qualified Code(s): M54.9 - Dorsalgia, unspecified
== END 2022-06-15 14:16 | disposition home or self-care (01) ==
LOC: EDINP 10:46 → ED 10:46 → SUATTDRO 15:41 → 2N 06-11 12:48